=== PATIENT | female | born 1940 | race Caucasian/White ===

== ENCOUNTER 2021-11-27 10:29 | Emergency (ER) | payer MEDICARE, SELFPAY ==
--- NOTE | ~2021-11-27 | XR_ITS ---
XR ankle RT min 3V DATE: 11/27/2021 11:17 INDICATION: Slipped on steps on 11/26/2021. Medial ankle and foot pain since then. TECHNIQUE: 4 views COMPARISON: None FINDINGS: Osteopenia. No fracture or dislocation of the ankle or disruption of the ankle mortise. No periosteal reaction or bone destruction. IMPRESSION: Osteopenia Reviewed, dictated and finalized at location A. IMPRESSION: Osteopenia
--- NOTE | ~2021-11-27 | XR_ITS ---
XR foot RT min 3V DATE: 11/27/2021 11:16 INDICATION: Slipped on steps on 11/26/2021. Medial ankle and foot pain since. TECHNIQUE: 4 views COMPARISON: None FINDINGS: Osteopenia. There is mild osteoarthritis at the first metatarsophalangeal joint. No fracture or dislocation, periosteal reaction or bone destruction. IMPRESSION: Osteopenia Mild first metatarsophalangeal osteoarthritis Reviewed, dictated and finalized at location A.
[2021-11-27 10:40] VITALS: BP 142/82; PULSE 75; RESP 20; TEMP 37.2; O2SAT 100
--- NOTE | 2021-11-27 10:50 | ED.LOWEXIN ---
HPI - Extremity Injury (Lower) General Chief Complaint: Extremity Injury, Lower Stated Complaint: Fall Injury/Right Foot/Ankle Injury Time Seen by Provider: 11/27/21 10:51 Source: patient Mode of arrival: ambulatory Limitations: no limitations History of Present Illness HPI Narrative: 81-year-old female presented for complaint of pain to the right inner foot and ankle since last night after injury. She states she missed the last 2 steps when she slipped walking down the stairs. She states she landed on both of her hands but denies any hand or wrist pain. She rates pain 8 out of 10 with walking. Has not taken anything for pain. She denies numbness, tingling, weakness. Reports hx rheumatoid arthritis. Denies hx osteoporosis. Related Data Home Medications Medication Instructions Recorded Confirmed conjugated estrogens 0.625 mg/gram 0.625 mg vaginal DAILY 06/23/19 11/27/21 vaginal cream (Premarin) fluticasone furoate 100 1 inh inhalation DAILY 06/23/19 11/27/21 mcg-vilanterol 25 mcg/dose inhalation powder (Breo Ellipta) losartan 100 mg tablet 100 mg PO DAILY 06/23/19 11/27/21 methotrexate sodium 2.5 mg tablet 2.5 mg PO WEEKLY 06/23/19 11/27/21 montelukast 10 mg tablet 10 mg PO DAILY 06/23/19 11/27/21 omeprazole 40 mg capsule,delayed 40 mg PO DAILY 06/23/19 11/27/21 release simvastatin 40 mg tablet 40 mg PO DAILY 06/23/19 11/27/21 Allergies Allergy/AdvReac Type Severity Reaction Status Date / Time amoxicillin AdvReac Unknown Nausea and Verified 11/27/21 10:35 Vomiting clavulanic acid AdvReac Unknown Nausea and Verified 11/27/21 10:35 Vomiting Review of Systems Review of Systems: CONSTITUTIONAL: Denies body aches, fever, chills CARDIOVASCULAR: Denies chest pain, palpitations, or edema. RESPIRATORY: Denies cough or dyspnea. SKIN: Denies rash, itching, or wounds. MUSCULOSKELETAL: Reports joint pain and right foot pain NEUROLOGIC: Denies headache, numbness, tingling, or weakness. PSYCH: Denies depression or anxiety. All systems reviewed & are unremarkable except as noted in HPI and below PMFSH Comments At time of signature, I have reviewed and agree with nursing past medical, surgical, social and family history unless otherwise noted. Please see nursing chart for further information. There is no relevant family history pertinent to the presenting complaint Exam Narrative: GENERAL: Well-appearing CHEST: Speaks in full sentences. No respiratory distress. HEART: Regular rate and rhythm. Normal and equal peripheral pulses. EXTREMITIES: Right foot limited range of motion with plantar flexion. Pain with palpation to plantar surface of 1st-2nd metatarsals. No edema or ecchymosis. Right foot has normal strength and sensation, No open wounds, skin tenting, or obvious deformity; pulse palpable and equal bilaterally, skin warm, dry, pink. Capillary refill less than 3 seconds. SKIN: Warm, dry, no rash. NEURO: Alert and oriented x3. PSYCH: Normal mood and affect Course Course Emergency Course: Patient is aware of diagnosis, understands and agrees to treatment plan. Anticipatory guidance given. Patient agrees to follow-up as directed and is aware of reasons to seek care at the emergency department. Portions of this record may have been created with voice recognition software Level of Care: Express Care Visit Vital Signs Vital signs: Vital Signs Temperature 99.0 F 11/27/21 10:40 Pulse Rate 75 11/27/21 10:40 Respiratory Rate 20 11/27/21 10:40 Blood Pressure 142/82 H 11/27/21 10:40 Pulse Oximetry 100 11/27/21 10:40 Oxygen Delivery Room Air 11/27/21 10:40 Temperature 99.0 F 11/27/21 10:40 Pulse Rate 75 11/27/21 10:40 Respiratory Rate 20 11/27/21 10:40 Blood Pressure 142/82 H 11/27/21 10:40 Pulse Oximetry 100 11/27/21 10:40 Oxygen Delivery Room Air 11/27/21 10:40 Reviewed MDM - Extremity Injury (Lower) MDM Narrative Medical decision making narrativ
== END 2021-11-27 11:40 | disposition home or self-care (01) ==
PROVIDERS: Emergency Provider Nurse Practitioner Family; PCP Internal Medicine
DX: S96.911A Strain of unspecified muscle and tendon at ankle and foot level, right foot, initial encounter (principal); W10.9XXA Fall (on) (from) unspecified stairs and steps, initial encounter; I10 Essential (primary) hypertension; Z95.5 Presence of coronary angioplasty implant and graft; Z86.711 Personal history of pulmonary embolism; K21.9 Gastro-esophageal reflux disease without esophagitis; M06.9 Rheumatoid arthritis, unspecified; Z96.641 Presence of right artificial hip joint; Z85.3 Personal history of malignant neoplasm of breast; Z98.42 Cataract extraction status, left eye
CPT/HCPCS: 73610; 73630; 99213; G0463

== ENCOUNTER 2024-11-14 10:01 | Emergency (ER) | payer MEDICARE, SELFPAY ==
--- NOTE | ~2024-11-14 | XR_ITS ---
XR chest 2V Ordering provider: LISANDRO Drake History: 84 years Female with . cough . Comparison: June 23, 2019 FINDINGS: MEDIASTINUM: The cardiac silhouette is not enlarged. LUNGS: No effusions or pneumothorax. Opacification in the left lung base suggestive of atelectasis versus pneumonia. Underlying emphysemat ous changes. OTHER: No free air under the diaphragm. Degenerative the spine. IMPRESSION: Left lower lobe atelectasis versus pneumonia. Reviewed, dictated and finalized at location A.
[2024-11-14 10:10] VITALS: BP 127/89; PULSE 60; RESP 20; TEMP 36.6; O2SAT 100
[2024-11-14 10:27] LABS: EDSTREPNEGPOS1 Negative (Negative)
--- NOTE | 2024-11-14 10:35 | ED_ITS ---
HPI - General Adult General Chief complaint: Upper Respiratory Infection Stated complaint: not feeling well Source: patient and family Mode of arrival: ambulatory Limitations: dementia History of Present Illness HPI narrative: Pt brought in by gregorio with reports of not feeling well. Gregorio called her two days ago and noted that she seemed to have problems with her respirations and seemed lethargic and confused. He states she lives independently in nursing home and has pre-dementia. On her way in today she experienced some nausea. Pt denies fever, cough, and sore throat however does not seem confident in her answers. Gregorio states he recently helped administer a throat spray after she told him she had a sore throat. She denies any urinary symptoms. Last bowel movement was this morning, solid in consistency. Related Data Home Medications ?Medication ?Instructions ?Recorded ?Confirmed ?Last Taken ?Type conjugated estrogens 0.625 mg/gram 0.625 mg vaginal DAILY 06/23/19 11/27/21 Unknown History vaginal cream (Premarin) fluticasone furoate 100 1 inh inhalation DAILY 06/23/19 11/27/21 Unknown History mcg-vilanterol 25 mcg/dose inhalation powder (Breo Ellipta) losartan 100 mg tablet 100 mg PO DAILY 06/23/19 11/27/21 Unknown History methotrexate sodium 2.5 mg tablet 2.5 mg PO WEEKLY 06/23/19 11/27/21 Unknown History montelukast 10 mg tablet 10 mg PO DAILY 06/23/19 11/27/21 Unknown History omeprazole 40 mg capsule,delayed 40 mg PO DAILY 06/23/19 11/27/21 Unknown History release simvastatin 40 mg tablet 40 mg PO DAILY 06/23/19 11/27/21 Unknown History donepezil 5 mg tablet mg 11/14/24 Unknown History folic acid 1 mg tablet 11/14/24 Unknown History Allergies Allergy/AdvReac Type Severity Reaction Status Date / Time amoxicillin AdvReac Unknown Nausea and Verified 11/14/24 10:16 Vomiting clavulanic acid AdvReac Unknown Nausea and Verified 11/14/24 10:16 Vomiting Review of Systems Review of Systems: CONSTITUTIONAL: Reports not feeling well. Grandlita reports she is lethargic. Denies fever, chills, or sweats. EYES: Denies visual changes, redness, or discharge. ENT: Denies rhinorrhea, congestion, sore throat, or otalgia. CARDIOVASCULAR: Denies chest pain, palpitations, or edema. RESPIRATORY: Denies cough or dyspnea. GASTROINTESTINAL: Denies abdominal pain, nausea, vomiting, or diarrhea. GENITOURINARY: Denies dysuria or hematuria. SKIN: Denies rash or itching. MUSCULOSKELETAL: Denies back pain, joint pain, or myalgia. NEUROLOGIC: Denies headache, numbness, dizziness, or weakness. PSYCHIATRIC: Denies anxiety or depression. [facility] Past Medical History Medical History (Updated 11/14/24 @ 12:19 by LISANDRO Drake, ) GERD (gastroesophageal reflux disease) Hyperlipidemia Hypertension Surgical History Surgical History Surgical history unknown Family History Family History Mother Family history unknown Social History Social History Living arrangements: alone Gender identity (if verbalized by the patient): Female Spiritual care concerns: No Exam Narrative: GENERAL: Well-appearing, well-nourished, and in no acute distress. HEAD: Normocephalic, atraumatic. EYES: PERRLA and EOMI. ENT: Nares clear, no rhinorrhea or epistaxis. Mucous membranes moist. Oropharynx without tonsillar hypertrophy exudate or other lesions. Bilateral TMs pearly beth nonbulging NECK: Supple. No adenopathy or masses. No carotid bruits or JVD CHEST: Clear to auscultation. No respiratory distress. No wheezes rales or rhonchi HEART: Regular rate and rhythm. No murmur heard. Normal peripheral pulses. ABDOMEN: Soft, nontender, nondistended, normal active bowel sounds. EXTREMITIES: Normal range of motion. No edema. SKIN: Warm, dry, no rash. NEURO: No focal deficits. Alert and oriented to person and place. Confused about time PSYCH: Normal mood and affect. Course Course Emergency Course: This is an 84-year-old female who presented for evaluation of generally not feeling well. Strep and COVID were negative. Urine dipstick without evidence of infection. Chest x-ray was concerning for pneumonia. We ambulated patient in the hallway in her heart rate increased into the 130s. EKG was performed with a rate of [address] and T wave abnormalities present. Pt lives alone and has baseline confusion which is presently worse. I recommended pt be transferred to the ER for further evaluation. Pt and grandson in agreement with plan. [facility] is their facility of choice. I contacted the emergency department at [facility] and spoke with RN, Lissa. She indicated that Dr Dutton would accept the patient for transfer there. Pt transferred via private vehicle. Level of Care: Express Care Visit Vital Signs Vital signs: Vital Signs Temperature 36.6 C 11/14/24 10:10 Pulse Rate 60 11/14/24 10:10 Respiratory Rate 20 11/14/24 10:10 Blood Pressure 127/89 11/14/24 10:10 Pulse Oximetry 100 11/14/24 10:10 Oxygen Delivery Room Air 11/14/24 10:10 Temperature 36.6 C 11/14/24 10:10 Pulse Rate 130 H 11/14/24 11:55 Respiratory Rate 11/14/24 10:10 Blood Pressure 127/89 11/14/24 10:10 Pulse Oximetry 11/14/24 11:55 Oxygen Delivery Room Air 11/14/24 10:10 Medical Decision Making Vital Signs Vital Signs: Vital Signs Temperature 36.6 C 11/14/24 10:10 Pulse Rate 60 11/14/24 10:10 Respiratory Rate 20 11/14/24 10:10 Blood Pressure 127/89 11/14/24 10:10 Pulse Oximetry 100 11/14/24 10:10 Oxygen Delivery Room Air 11/14/24 10:10 Temperature 36.6 C 11/14/24 10:10 Pulse Rate 130 H 11/14/24 11:55 Respiratory Rate 11/14/24 10:10 Blood Pressure 127/89 11/14/24 10:10 Pulse Oximetry 100 11/14/24 11:55 Oxygen Delivery Room Air 11/14/24 10:10 Lab Data Labs: Lab Results 11/14/24 11/14/24 Range/Units 10:16 11:14 POC Urine Color Yellow POC Urine Clarity Clear POC Urine pH 5.5 POC Ur Specif Spade 1.030 POC Urine Protein 2+ (Negative) POC Ur Glucose (UA) Negative (Negative) POC Urine Ketones Negative (Negative) POC Urine Blood 1+ (Negative) POC Urine Nitrite Negative (Negative) POC Urine Bilirubin 1+ (Negative) POC Urine Urobilinogen 0.2 POC U Leukocyte Esteras Negative (Negative) POC SARS CoV-2 Ag Negative (Negative) POC Grp A Strep Screen Negative (Negative) Imaging Data Radiologist's impression: XR chest 2V Ordering provider: LISANDRO Drake History: 84 years Female with . cough . Comparison: June 23, 2019 FINDINGS: MEDIASTINUM: The cardiac silhouette is not enlarged. LUNGS: No effusions or pneumothorax. Opacification in the left lung base suggestive of atelectasis versus pneumonia. Underlying emphysematous changes. OTHER: No free air under the diaphragm. Degenerative the spine. IMPRESSION: Left lower lobe atelectasis versus pneumonia. ECG Data EKG #1: ECG completion date: 11/14/24 ECG completion time: 12:06 Interpretation: Sinus rhythm, rate 89, left atrial enlargement, ST and T-wave changes Discharge Plan Discharge Clinical Impression: Pneumonia, Tachycardia Patient Disposition: Acute Care Hospital Condition: Stable Patient Language: [place] Citizen Prescriptions: No Action omeprazole 40 mg Capsule,Delayed Release(Dr/Ec) 40 mg PO DAILY simvastatin 40 mg Tablet 40 mg PO DAILY methotrexate sodium 2.5 mg Tablet 2.5 mg PO WEEKLY Premarin 0.625 mg/gram Cream 0.625 mg VAGINAL DAILY montelukast 10 mg Tablet 10 mg PO DAILY losartan 100 mg Tablet 100 mg PO DAILY fluticasone furoate-vilanterol [Breo Ellipta] 100-25 mcg/dose Blister With De vice 1 inh INHALATION DAILY cetirizine-pseudoephedrine [Zyrtec-D] 5-120 mg tablet extended release 12 hr 1 tablet PO Q12H PRN (Reason: nasal congestion) Qty: 12 0RF ipratropium bromide 0.03 % spray,non-aerosol 2 spray NASAL TID PRN (Reason: nasal drainage) Qty: 30 0RF Rx Instructions: administer into each nostril donepezil 5 mg tablet folic acid 1 mg tablet Follow-up/Referrals: Nancy,Eddy Edmonds MD [Primary Care Provider] - Time of Disposition: 12:19
--- OUTSIDE RECORDS SUMMARY | 2024-11-14 10:41 | XMS_ITS | Encounter Summary ---
Author Organization [facility] Address [address] [place] [address] Phone Care Team Providers Care Dental Hygiene Professor Name Role Phone Eddy Cruz MD Primary Care Provider [phone] Loreto Espinosa APRN, [facility] Unavailable [phone] Allen Easton MD Unavailable [phone] Reason for Visit * Reason Comments Medication Refill Encounter Details Date Type Department Care Team (Late st Contact Info) Description 12/29/2023 Refill [facility] - Family Medicine [facility] [address] [place] [address] Eddy Cruz MD [address] [address] Medication Refill Social History Tobacco Use Types Packs/Day Years Used Date Smoking Tobacco: Never Smokeless Tobacco: Never Alcohol Use Standard Drinks/Week Comments Yes 2 (1 standard drink = 0.6 oz pur e alcohol) 2 glasses of wine a week [facility] Utilities Answer Date Recorded In the past 12 months has [employer], gas, oil, or water company threatened to shut off services in your home? Patient declined 12/11/2023 Social Connection and Isolation Panel Answer Date Recorded In a typical week, how many times do you talk on the phone with family, friends, or neighbors? Patient declined 12/11/2023 How often do you get togethe r with friends or relatives? Patient declined 12/11/2023 Attends [employer] Services Not on file 12/10 Active Member of Clubs or Organizations Not on f ile 12/11/2023 Attends Club or Organization Meetings Not on yoana e 12/11/2023 Marital Status Not on file 12/11/2023 AUDIT-C Answer Date Recorded Q1: How often do you have a drink containing alc ohol? Patient declined 12/11/2023 Q2: How many drinks containi ng alcohol do you have on a typical day when you are drinking? Patient declined 12/11/2023 Q3: How often do you have si x or more drinks on one occasion? Patient declined 12/11/2023 Overall Financial Resource Strain (CARDIA) Answe r Date Recorded How hard is it for you to pa y for the very basics like food, housing, medical care, and heating? Patient declined 12/11/2023 PHQ-2 Answer Date Recorded Total Score - Questions 1-9 0 07/28 [facility] Occupat ional [facility] - Occupational Stress Questionnaire Answer Date Recorded Do you feel stress - tense, restless, nervous, or anxious, or unable to sleep at night because your mind is troubled all the time - these days? Patient declined 12/11/2023 Exercise Vital Sign Answer Date Recorde d On average, how many days pe r week do you engage in moderate to strenuous exercise (like a brisk walk)? 0 days On average, how many minutes do you engage in exercise at this level? Patient declined 12/11/2023 Hunger Vital Sign Answer Date Recorded Within the past 12 months, y ou worried that your food would run out before you got the money to buy more. Patient declined Within the past 12 months, t he food you bought just didn't last and you didn't have money to get more. Patient declined PRAPARE - Transportation Answer Date Re corded In the past 12 months, has l ack of transportation kept you from medical appointments or from getting medications? Patient declined 12/11/2023 In the past 12 months, has l ack of transportation kept you from meetings, work, or from getting things needed for daily living? Patient declined 12/11/2023 Housing Stability Vital Sign Answer Phan e Recorded In the last 12 months, was t here a time when you were not able to pay the mortgage or rent on time? Patient declined 12/11/19 24 Number of Times Moved in the Last Year Not on fi le 12/11/2023 At any time in the past 12 m [facility], were you homeless or living in a fci (including now)? Patient declined 12/11/2023 Education Answer Date Recorded What is the highest level of school you have completed or the highest degree you have received? 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 Requested too soon: Montelukast Sodium Dispensed Days Supply Quantity Provider Pharmacy MONTELUKAST SODIUM 10 MG TABS 11/04/2023 90 90 Tablet Eddy Cruz MD [facility] [employer] Simvastatin Dispensed Days Supply Quantity Provider Pharmacy SIMVASTATIN 40 MG TABS 11/04/2023 90 90 Tablet Eddy Cruz MD [facility] [id number] documented in this encounter Plan of Treatment Upcoming Encounters Date Type Department Care Team (Late st Contact Info) Description 04/18/2025 8:30 AM ENVIRONMENTAL HEALTH MANAGER Office Visit [facility] - [facility] - [place] [address] [place] [address] Eddy Cruz MD [address] [address] documented as of this encounter Visit Diagnoses Not on filedocumented in this encounter Additional Health Concerns Assessment Noted Time PHQ-9 Depression Total Score: 0 06/26/19 21 8:55 AM ENVIRONMENTAL HEALTH MANAGER documented as of this encounter Care Teams Dental Hygiene Professor Relationship Specialty Start Date End Date Eddy Cruz MD [address] [address] PCP - General Family Medicine 06/10/15 Loreto Espinosa, INPATIENT CODER, ALARM MECHANISM ADJUSTER [address] [address] Nurse Practitioner Advanced Practice Nurse 05/05/16 Allen Easton MD [address] [place] [id number] Consulting Physician Neurology 09/27/21 documented as of this encounter
--- OUTSIDE RECORDS SUMMARY | 2024-11-14 10:41 | XMS_ITS | Encounter Summary ---
Author Organization [facility] Address [address] [place] [address] Phone Care Team Providers Care Entry Level Administrative Assistant Name Role Phone Eddy Cruz MD Primary Care Provider [phone] Loreto Espinosa APRN, [facility] Unavailable Allen Easton MD Unavailable Reason for Visit * Reason Comments Medication Refill Encounter Details Date Type Department Care Team (Late st Contact Info) Description 06/08/2023 Refill [facility] - Family Medicine [facility] [address] [place] [address] Eddy Cruz MD [address] [address] Medication Refill Social History Tobacco Use Types Packs/Day Years Used Date Smoking Tobacco: Never Smokeless Tobacco: Never Alcohol Use Standard Drinks/Week Comments Yes 2 (1 standard drink = 0.6 oz pur e alcohol) 2 glasses of wine a week PHQ-2 Answer Date Recorded Total Score - Questions 1-9 0 07/28 Education Answer Date Recorded What is the [...] 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 Requested Prescriptions Pending Prescriptions Disp Refills omeprazole (PriLOSEC) 40 MG CAPSULE DELAYED RELEASE [Pharmacy Med Name: Omeprazole 40 MG Oral Capsule Delayed Release] 100 Capsule 2 Sig: TAKE 1 CAPSULE BY MOUTH DAILY Proton Pump Inhibitors Protocol Passed - 06/08/2023 10:04 PM Passed - Visit with relevant provider in past 12 months or upcoming 90 days Recent Visits Date Type Provider Dept 04/05/23 Office Visit Eddy Cruz MD [facility] 11/03/22 Office Visit Eddy Cruz MD [facility] 10/03/22 Office Visit Eddy Cruz MD [facility] Showing recent visits within past 365 days and meeting all other requirements Future Appointments Date Type Provider Dept 07/31/23 Appointment [facility] Showing future appointments within next 90 days and meeting all other requirements IN DISKER documented in this encounter Plan of Treatment Upcoming Encounters Date Type Department Care Team (Late st Contact Info) Description 04/18/2025 8:30 AM BOBBIN DISKER Office Visit [facility] Medical Group - Family Medicine - [place] [address] [place] [address] Eddy Cruz MD [address] [address] documented as of this encounter Visit Diagnoses Not on filedocumented in this encounter Additional Health Concerns Assessment Noted Time PHQ-9 Depression Total Score: 0 06/26/19 8:55 AM BOBBIN DISKER documented as of this encounter Care Teams Entry Level Administrative Assistant Relationship Specialty Start Date End Date Eddy Cruz MD [address] [address] PCP - General Family Medicine 06/10/15 Loreto Espinosa APRN, [employer] #[address] [address] Nurse Practitioner Advanced Practice Nurse 05/05/16 Allen Easton MD [address] [place] [phone] Consulting Physician Neurology 09/27/21 documented as of this encounter
--- OUTSIDE RECORDS SUMMARY | 2024-11-14 10:41 | XMS_ITS | Encounter Summary ---
Author Organization [facility] Address [address] [place] [address] Phone Care Team Providers Care Micrographics Services Supervisor Name Role Phone Eddy Cruz MD Primary Care Provider Loreto Espinosa APRN, ENVIRONMENTAL SAMPLING TECHNICIAN Unavailable Allen Easton MD Unavailable [phone] Encounter Details Date Type Department Care Team (Late st Contact Info) Description 02/17/2021 Transcribe Orders [facility] Central Scheduling [address] [place] [address] Awa Kincaid MD [address] [place] [address] [facility] [place] [address] Peripheral vascular disease, unspecified (HCC) (Primary Dx) Social History Tobacco Use Types Packs/Day Years Used Date Smoking Tobacco: Never Smokeless Tobacco: Never Alcohol Use Standard Drinks/Week Comments Yes 2 (1 standard drink = 0.6 oz pur e alcohol) 2 glasses of wine a week PHQ-2 Answer Date Recorded Total Score - Questions 1-9 0 05/30 Sexually Active Control Partners Comments Not Currently Comments No Sex and Gender Information Value Date Recorded Sex Assigned at Not on file Legal Sex Female 8:44 PM CDT Gender Identity Not on file Sexual Orientation Not on file 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 Not on file Not on yoana e documented as of this encounter Plan of Treatment Upcoming Encounters Date Type Department Care Team (Late st Contact Info) Description 04/18/2025 8:30 AM WOVEN LABEL DESIGNER [facility] [address] [place] [address] Eddy Cruz MD #2 [facility] [place] [place] [address] documented as of this encounter Visit Diagnoses Diagnosis Peripheral vascular disease, unspecified (HCC)- Primary Peripheral vascular disease, unspecified documented in this encounter Additional Health Concerns Assessment Noted Time PHQ-9 Depression Total Score: 0 06/26/19 8:55 AM WOVEN LABEL DESIGNER documented as of this encounter Care Teams Micrographics Services Supervisor Relationship Specialty Start Date End Date Eddy Cruz MD #[address] [address] PCP - General Family Medicine 06/10/15 Loreto Espinosa, REFINERY OPERATOR [employer], ENVIRONMENTAL SAMPLING TECHNICIAN #[address] [address] Nurse Practitioner Advanced Practice Nurse 05/05/16 Allen Easton MD [address]2 [place] [address] Consulting Physician Neurology 09/27/21 documented as of this encounter
--- OUTSIDE RECORDS SUMMARY | 2024-11-14 10:41 | XMS_ITS | Encounter Summary ---
Author Organization [facility] Address [address] [place] [address] Phone Care Team Providers Care Home Service Advisor Name Role Phone Eddy Cruz MD Primary Care Provider [phone] Loreto Espinosa APRN, [facility] Unavailable [phone] Allen Easton MD Unavailable Reason for Visit * Reason Comments Medication Refill Encounter Details Date Type Department Care Team (Late st Contact Info) Description 09/29/2022 Refill [facility] - Family Medicine [facility]2 [place] [address] Eddy Cruz MD #[address] [address] Medication Refill Social History Tobacco Use Types Packs/Day Years Used Date Smoking Tobacco: Never Smokeless Tobacco: Never Alcohol Use Standard Drinks/Week Comments Yes 2 (1 standard drink = 0.6 oz pur e alcohol) 2 glasses of wine a week PHQ-2 Answer Date Recorded Total Score - Questions 1-9 0 07/28 Sexually Active Control Partners Comments Not Currently Comments No Sex and Gender Information Value Date Recorded Sex Assigned at Not on file Legal Sex Female 8:44 PM CDT Gender Identity Not on file Sexual Orientation Not on file 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 No / Unsure 09/29/2022 8:44 AM CDT documented as of this encounter Miscellaneous Notes * Telephone Encounter - Savannah Sparrow RN - 09/30/2022 8:22 AM CDT Medication warning Per nursing clinical judgement, provider to review and approve the medication(s) order(s) if appropriate. Requested Prescriptions Pending Prescriptions Disp Refills omeprazole (PriLOSEC) 40 MG CAPSULE DELAYED RELEASE [Pharmacy Med Name: Omeprazole 40 MG Oral Capsule Delayed Release] 100 Capsule 2 Sig: TAKE 1 CAPSULE BY MOUTH DAILY Proton Pump Inhibitors Protocol Passed - 09/29/2022 10:20 PM Passed - Visit with relevant provider in past 12 months or upcoming 90 days Recent Visits Date Type Provider Dept 04/29/22 Office Visit Eddy Cruz MD [facility] 10/29/21 Office Visit Eddy Cruz MD [facility] [place] [facility] Showing recent visits within past 365 days and meeting all other requirements Future Appointments Date Type Provider Dept 10/03/22 Appointment Eddy Cruz MD [facility] 10/28/22 Appointment Eddy Cruz MD [facility] Showing future appointments within next 90 days and meeting all other requirements documented in this encounter Plan of Treatment Upcoming Encounters Date Type Department Care Team (Late st Contact Info) Description 04/18/2025 8:30 AM CENTERPUNCHER Office Visit [facility] - Family Medicine - Mag [address] [place] [address] Eddy Cruz MD [address] [address] documented as of this encounter Visit Diagnoses Not on filedocumented in this encounter Additional Health Concerns Assessment Noted Time PHQ-9 Depression Total Score: 0 06/26/19 8:55 AM CENTERPUNCHER documented as of this encounter Care Teams Home Service Advisor Relationship Specialty Start Date End Date Eddy Cruz MD #[address] [address] PCP - General Family Medicine 06/10/15 Loreto Espinosa APRN, PRODUCE RUNNER #[address] [address] Nurse Practitioner Advanced Practice Nurse 05/05/16 Allen Easton MD [address]2 [place] [address] Consulting Physician Neurology 09/27/21 documented as of this encounter
--- OUTSIDE RECORDS SUMMARY | 2024-11-14 10:41 | XMS_ITS | Encounter Summary ---
Author Organization [facility] Address [address] [place] [address] Phone Care Team Providers Care Physical Therapist Technician Name Role Phone Eddy Cruz MD Primary Care Provider [phone] Loreto Espinosa APRN, [facility] Unavailable Allen Easton MD Unavailable [phone] Reason for Visit * Reason Comments Medication Refill Encounter Details Date Type Department Care Team (Late st Contact Info) Description 08/03/2020 Refill [facility] - Family Medicine [facility] [address]2 [place] [address] Eddy Cruz MD #[address] [address] Medication Refill Social History Tobacco Use Types [...] Job 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 No / Unsure 07/30/2020 6:14 PM ANIMAL SURGEON documented as of this encounter Miscellaneous Notes * Telephone Encounter - Eddy Cruz MD - 08/04/2020 9:58 AM CST Prescription approved. Please call in AL SURGEON * Telephone Encounter - Savannah Sparrow RN - 08/04/2020 9:50 AM CST Please address medication warning Per nursing clinical judgement, provider to review and approve the medication(s) order(s) if appropriate. Requested Prescriptions Pending Prescriptions Disp Refills montelukast (SINGULAIR) 10 MG Tablet [Pharmacy Med Name: MONTELUKAST 10MG TABLET] 90 Tablet 3 Sig: TAKE 1 TABLET BY MOUTH DAILY Pulmonology: Leukotriene Inhibitors Passed - 08/03/2020 10:51 AM Passed - Valid encounter within last 12 months Past Office Visits Recent Outpatient Visits 1 month ago Essential hypertension [facility] - Eddy Riggs MD 7 months ago Essential hypertension [facility] Eddy Riggs MD 1 year ago Essential hypertension [facility] Asuncion Morales PAC 1 year [facility] bacterial [facility] APN, FERRYBOAT HELPER Upcoming Appointments Future Appointments In [address] [facility] Recent and Past Visits Recent Visits Date Type Provider Dept 06/26/20 Office Visit Eddy Cruz MD [facility] 12/24/19 Office Visit [facility] MD [facility] Showing recent visits within past 460 days with a meds authorizing provider and meeting all other requirements Future Appointments No visits were found meeting these conditions. Showing future appointments within next 90 days with a meds authorizing provider and meeting all other requirements AL SURGEON documented in this encounter Plan of Treatment Upcoming Encounters Date Type Department Care Team (Late st Contact Info) Description 04/18/2025 8:30 AM ANIMAL SURGEON [facility] Visit [facility] [address]2 [place] [address] Eddy Cruz MD #[address] [address] documented as of this encounter Visit Diagnoses Not on filedocumented in this encounter Additional Health Concerns Assessment Noted Time PHQ-9 Depression Total Score: 0 06/26/19 21 8:55 AM ANIMAL SURGEON documented as of this encounter Care Teams Physical Therapist Technician Relationship Specialty Start Date End Date Eddy Cruz MD #[address] [address] PCP - General Family Medicine 06/10/15 Loreto Espinosa APRN, FERRYBOAT HELPER #[address] [address] Nurse Practitioner Advanced Practice Nurse 05/05/16 Allen Easton MD #2 [place] [address] Consulting Physician Neurology 09/27/21 documented as of this encounter
--- OUTSIDE RECORDS SUMMARY | 2024-11-14 10:41 | XMS_ITS | Encounter Summary ---
Author Organization [facility] Address [address] [place] [address] Phone Care Team Providers Care Automatic Furnace Operator Name Role Phone Eddy Cruz MD Primary Care Provider [phone] Loreto Espinosa APRN, [facility] Unavailable [phone] Allen Easton MD Unavailable Reason for Visit * Reason Comments Medication Refill Encounter Details Date Type Department Care Team (Late st Contact Info) Description 08/10/2023 Refill [facility] - [facility]2 [place] [address] Eddy Cruz MD #[address] [address] Medication Refill Social History Tobacco Use Types [...] 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 Requested Prescriptions Pending Prescriptions Disp Refills losartan (COZAAR) 100 MG Tablet [Pharmacy Med Name: Losartan Potassium 100 MG Oral Tablet] 100 Tablet 2 Sig: TAKE 1 TABLET BY MOUTH DAILY ARB Protocol Passed - 08/10/2023 9:24 PM Passed - Serum potassium on record in past 12 months POTASSIUM Date Value Ref Range Status 07/31/2023 4.3 3.5 - 5.1 mmol/L Final Passed - BP on record in the past year Clinician-entered: BP Readings from Last 3 Encounters: 07/31/23 132/82 04/05/23 132/65 12/26/22 143/74 Patient-entered: No data recorded Passed - Visit with relevant provider in past year or upcoming 90 days Recent Visits Date Type Provider Dept 07/31/23 [facility]23 [facility] 11/03/22 Office [facility] 10/03/22 Office Visit Eddy Cruz MD [facility] Showing recent visits within past 365 days and meeting all other requirements Future Appointments No visits were found meeting these conditions. Showing future appointments within next 90 days and meeting all other requirements Passed - GFR on record in past 12 months GFR, EST. NONAFRICAN Date Value Ref Range Status 07/31/2023 >60 >=60 Final documented in this encounter Plan of Treatment Upcoming Encounters Date Type Department Care Team (Late st Contact Info) Description 04/18/2025 8:30 AM EXERCISE SCIENTIST [facility] Visit [facility] - [facility] [address] [place] [address] Eddy Cruz MD #[address] [address] documented as of this encounter Visit Diagnoses Not on filedocumented in this encounter Additional Health Concerns Assessment Noted Time PHQ-9 Depression Total Score: 0 06/26/19 21 8:55 AM EXERCISE SCIENTIST documented as of this encounter Care Teams Automatic Furnace Operator Relationship Specialty Start Date End Date Eddy Cruz MD #[address] [address] PCP - General Family Medicine 06/10/15 Loreto Espinosa APRN, [employer]CH[employer] #[address] [address] Nurse Practitioner Advanced Practice Nurse 05/05/16 Allen Easton MD [address]2 [place] [address] Consulting Physician Neurology 09/27/21 documented as of this encounter
--- OUTSIDE RECORDS SUMMARY | 2024-11-14 10:41 | XMS_ITS | Encounter Summary ---
Author Organization [facility] Address [address] [place] [address] Phone Care Team Providers Care Sleeping Room Cleaner Name Role Phone Eddy Cruz MD Primary Care Provider [phone] Loreto Espinosa APRN, [facility] Unavailable Allen Easton MD Unavailable Reason for Visit * Reason Comments Medication Refill Encounter Details Date Type Department Care Team (Late st Contact Info) Description 11/13/2024 Refill [facility] - Family Medicine [facility] #2 [place] [address] Eddy Cruz MD #[address] [address] Medication Refill Social History Tobacco Use Types Packs/Day Years Used Date Smoking Tobacco: Never Smokeless Tobacco: Never Alcohol Use Standard Drinks/Week Comments Yes 2 (1 standard drink = 0.6 oz pur e alcohol) 2 glasses of wine a week [facility] Utilities Answer Date Recorded In the past 12 months has [employer], gas, oil, or water company threatened to shut off services in your home? Patient declined 03/21/2024 Social Connection and Isolation Panel Answer Date Recorded In a typical week, how many times do you talk on the phone with family, friends, or neighbors? Patient declined 03/21/2024 How often do you get togethe r with friends or relatives? Patient declined 03/21/2024 How often do you attend denominational or spiritism serv ices? Patient declined 03/21/2024 Do you belong to any clubs o r organizations such as denominational groups, unions, fraternal or athletic groups, or school groups? Patient declined 03/21/2024 How often do you attend meet ings of the clubs or organizations you belong to? Patient declined 03/21/2024 Are you , , di vorced, , never , or living with a partner? Patient declined 03/21/2024 AUDIT-C Answer Date Recorded Q1: How often do you have a drink containing alc ohol? Patient declined 03/21/2024 Q2: How many drinks containi ng alcohol do you have on a typical day when you are drinking? Patient declined 03/21/2024 Q3: How often do you have si x or more drinks on one occasion? Patient declined 03/21/2024 Overall Financial Resource Strain (CARDIA) Answe r Date Recorded How hard is it for you to pa y for the very basics like food, housing, medical care, and heating? Patient declined 03/21/2024 PHQ-2 Answer Date Recorded Total Score - Questions 1-9 0 09/27 [facility] - Occupational Stress Questionnaire Answer Date Recorded Do you feel stress - tense, restless, nervous, or anxious, or unable to sleep at night because your mind is troubled all the time - these days? Patient declined 03/21/2024 Exercise Vital Sign Answer Date Recorde d On average, how many days pe r week do you engage in moderate to strenuous exercise (like a brisk walk)? Patient declined On average, how many minutes do you engage in exercise at this level? Patient declined 03/21/2024 Hunger Vital Sign Answer Date Recorded Within [...] appointments or from getting medications? Patient declined 03/21/2024 In the past 12 months, has l ack of transportation kept you from meetings, work, or from getting things needed for daily living? Patient declined 03/21/2024 Housing Stability Vital Sign Answer Phan e Recorded In the last 12 months, was t here a time when you were not able to pay the mortgage or rent on time? Patient declined 03/21/20 In the past 12 months, how m any times have you moved where you were living? 1 03/21/2024 At any time in the past 12 m [facility], were you homeless or living in a residential (including now)? 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 Requested Prescriptions Pending Prescriptions Disp Refills omeprazole (PriLOSEC) 40 MG CAPSULE DELAYED RELEASE [Pharmacy Med Name: Omeprazole 40 MG Oral Capsule Delayed Release] 90 Capsule 3 Sig: TAKE 1 CAPSULE BY MOUTH DAILY Proton Pump Inhibitors Protocol Passed - 11/14/2024 9:30 AM Passed - Visit with relevant provider in past 12 months or upcoming 90 days Recent Visits Date Type Provider Dept 10/16/24 Office Visit Eddy Cruz MD [facility] 04/19/24 Office Visit Eddy Cruz MD [facility] 03/21/24 Office Visit Eddy Cruz MD [facility] 12/11/23 Office Visit Eddy Cruz MD [facility] Showing recent visits within past 365 days and meeting all other requirements Future Appointments No visits were found meeting these conditions. Showing future appointments within next 90 days and meeting all other requirements documented in this encounter Plan of Treatment Upcoming Encounters Date Type Department Care Team (Late st Contact Info) Description 04/18/2025 8:30 AM BINDERY MACHINE OPERATOR [facility] [place] [address] Eddy Cruz MD [address] [address] documented as of this encounter Visit Diagnoses Not on filedocumented in this encounter Additional Health Concerns Assessment Noted Time PHQ-9 Depression Total Score: 0 10/17/19 25 9:16 AM CDT documented as of this encounter Care Teams Sleeping Room Cleaner Relationship Specialty Start Date End Date Eddy Cruz MD #[address] [address] PCP - General Family Medicine 06/10/15 Loreto Espinosa APRN, SPINE SURGEON #[address] [address] Nurse Practitioner Advanced Practice Nurse 05/05/16 Allen Easton MD #2 [place] [address] Consulting Physician Neurology 09/27/21 documented as of this encounter
--- OUTSIDE RECORDS SUMMARY | 2024-11-14 10:41 | XMS_ITS | Encounter Summary ---
Author Organization [facility] Address [address] [place] [address] Phone Care Team Providers Care Marine Plumber Name Role Phone Eddy Cruz MD Primary Care Provider [phone] Loreto Espinosa APRN, [facility] Unavailable [phone] Allen Easton MD Unavailable Reason for Visit * Reason Comments Medication Refill Encounter Details Date Type Department Care Team (Late st Contact Info) Description 11/17/2019 [facility]ill [facility] [address]2 [place] [address] Eddy Cruz MD [address] [address] Medication Refill Social History Tobacco Use Types Packs/Day Years Used Date Smoking Tobacco: Never Smokeless Tobacco: Never Alcohol Use Standard Drinks/Week Comments Yes 2 (1 standard drink = 0.6 oz pur e alcohol) 2 glasses of wine a week PHQ-2 Answer Date Recorded PHQ-2 Score 1 01/29/2019 Sexually Active Control Partners Comments Not Currently Comments No Sex and Gender Information Value Date Recorded Sex Assigned at Not on file Legal Sex Female 8:44 PM CDT Gender Identity Not on file Sexual Orientation Not on file 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 Yes, pended. * Telephone Encounter - Evy Arvizu RN - 11/21/2019 1:54 PM CDT Called patient. Scheduled patient on 12/23 at 12:30. Patient is asking if PCP will fill until then. Please advise. Is PCP wanting fasting labs done prior to appointment? Please advise. * Telephone Encounter - Rae Randhawa RN - 11/19/2019 1:42 PM CDT NITESH: 09-21-2018 Next OV: none documented in this encounter Plan of Treatment Upcoming Encounters Date Type Department Care Team (Late st Contact Info) Description 04/18/2025 8:30 AM SIGN MAINTENANCE Office Visit [facility] - Family Medicine [facility] [address]2 [place] [address] Eddy Cruz MD #[address] [address] documented as of this encounter Results * LIPID PANEL (12/24/2019 1:08 PM CDT) CHOLESTEROL 109 <=200 mg/dL 12/24/2019 3:25 PM CDT [facility] TRIGLYCERIDES 56 <150 mg/dL 12/24/2019 3:25 PM CDT [facility] HDL CHOLESTEROL 63.0 >40 mg/dL 0 3:25 PM CDT [facility] LDL 35 5 - 130 mg/dL 12/24/2019 3:25 PM CDT [facility] VLDL 11 5 - 55 mg/dL 12/24/2019 3:25 PM CDT [facility] CHOL/HDL RATIO 1.7 0.0 - 4.4 12/24/2019 3:25 PM CDT [facility] NON-HDL CHOLESTEROL 46 <130 mg/dL 12/24/2019 3:25 PM CDT [facility] LIPID FASTING 12/24/2019 3:25 PM CDT [facility] Blood Venipuncture / Unknown 12/24/2019 1:08 PM CDT 12/24/2019 1:08 PM CDT Eddy Cruz MD CHEMISTRY ORDERABLES Final Re sult [facility] #[address] [place] [address] * (ABNORMAL) CMP (COMPREHENSIVE METABOLIC PANEL) (12/24/2019 1:08 PM CDT) SODIUM 136 136 - 144 mmol/L 12/24/2019 3:25 PM CDT [facility] POTASSIUM 4.4 3.5 - 5.1 mmol/L 12/24/2019 3:25 PM CDT [facility] CHLORIDE 98(L) 100 - 110 mmol/L 12/24/2019 3:25 PM CDT [facility] CO2, VENOUS 26 22 - 32 mmol/L 12/24/2019 3:25 PM CDT [facility] ANION GAP 16.4 8.0 - 20.0 mmol/L 12/24/2019 3:25 PM CDT [facility] GLUCOSE 104(H) 70 - 99 mg/dL 12/24/2019 3:25 PM CDT [facility] BUN 11 8 - 23 mg/dL 12/24/2019 3:25 PM CDT [facility] CREATININE, BLOOD 0.70 0.60 - 1.10 mg/dL 12/24/2019 3:25 PM CDT [facility] BUN/CREATININE RATIO 16 12 - 20 ratio 12/24/2019 3:25 PM CDT [facility] TOTAL PROTEIN 7.3 6.0 - 8.3 g/dL 12/24/2019 3:25 PM CDT [facility] ALBUMIN 4.4 3.5 - 5.2 g/dL 12/24/2019 3:25 PM CDT [facility] Comment: The colormetric methods used for the determination of Albumin may lead to falsely elevated test results in patients suffering from renal failure or insufficiency due to interference with other proteins. A/G RATIO 1.5 1.0 - 2.0 12/24/2019 3:25 PM CDT [facility] CALCIUM 9.7 8.9 - 10.3 mg/dL 12/24/2019 3:25 PM CDT [facility] T BILI 0.3 <=1.2 mg/dL 12/24/2019 3:25 PM CDT [facility] SGOT (AST) 23 <=32 U/L 12/24/2019 3:25 PM CDT [facility] SGPT (ALT) 13 <=33 U/L 12/24/2019 3:25 PM CDT [facility] ALKALINE PHOSPHATASE 71 35 - 105 U/L 12/24/2019 3:25 PM CDT [facility] GFR, EST. NONAFRICAN >60 >=60 12/24/2019 3:25 PM CDT [facility] GFR, EST. >60 >=60 020 3:25 PM CDT [facility] Comment: Creatinine Clearance is the preferred criteria for selecting drug dose adjustments in renally impaired patients. The GFR is provided as additional pertinent clinical information. GFR is reported in mL/min/1.73 sq m. Blood Venipuncture / Unknown 12/24/2019 1:08 PM CDT 12/24/2019 1:08 PM CDT Eddy Cruz MD CHEMISTRY ORDERABLES Final Re sult Performing Organization Address City/State/[facility] Co de Phone Number [facility] [address] [place] [address] documented in this encounter Visit Diagnoses Diagnosis Essential hypertension- Primary Unspecified essential hypertension Coronary artery disease involving [place] coronary artery of [place] heart without angina pectoris Pure hypercholesterolemia documented in this encounter Additional Health Concerns Assessment Noted Time PHQ-9 Depression Total Score: 1 01/15/20 19 9:55 AM CDT documented as of this encounter Care Teams Marine Plumber Relationship Specialty Start Date End Date Eddy Cruz MD #[address] [address] PCP - General Family Medicine 06/10/15 Loreto Espinosa APRN, CNP #[address] [address] Nurse Practitioner Advanced Practice Nurse 05/05/16 Allen Easton MD [address]2 [place] [address] Consulting Physician Neurology 09/27/21 documented as of this encounter
--- OUTSIDE RECORDS SUMMARY | 2024-11-14 10:41 | XMS_ITS | Encounter Summary ---
Author Organization [facility] Address [address] [place] [address] Phone Care Team Providers Care Education Paraprofessional Name Role Phone Eddy Cruz MD Primary Care Provider [phone] Loreto Espinosa APRN, [facility] Unavailable [phone] Allen Easton MD Unavailable Reason for Visit * Reason Onset Date Comments Need Order 09/23/2024 Appointment 09/23/2024 Encounter Details Date Type Department Care Team (Late st Contact Info) Description 09/23/2024 Telephone [facility] Central Call Center [address] [place] [phone] Eddy Cruz MD #[address] [address] Need Order; Appointment Social History Tobacco Use Types Packs/Day Years Used Date Smoking Tobacco: Never Smokeless Tobacco: Never Alcohol Use Standard Drinks/Week Comments Yes 2 (1 standard drink = 0.6 oz pur e alcohol) 2 glasses of wine a week [facility] Utilities Answer Date Recorded In the past 12 months has e electric, gas, oil, or water company threatened to [...] declined 03/21/2024 How often do you attend cheondoism or roman catholic serv ices? Patient declined 03/21/2024 Do you belong to any clubs o r organizations such as cheondoism groups, unions, fraternal or athletic groups, or [...] Total Score - Questions 1-9 0 07/28 [facility] - Occupational Stress Questionnaire Answer Date Recorded [...] any time in the past 12 m [facility], were you homeless or living in a skilled nursing (including now)? 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 Tried to explain to him that patient will need to be seen first but he insisted on getting the fax number. Called patient and she DID NOT request an order for those or want these ordered. She said she does not have those problems. Please disregard any orders that may come to office. documented in this encounter Plan of Treatment Upcoming Encounters Date Type Department Care Team (Late st Contact Info) Description 04/18/2025 8:30 AM WINDOW SASH INSTALLER Office Visit [facility] - [place] [address] [place] [address] Eddy Cruz MD #[address] [address] documented as of this encounter Visit Diagnoses Not on filedocumented in this encounter Additional Health Concerns Assessment Noted Time PHQ-9 Depression Total Score: 0 06/26/19 21 8:55 AM WINDOW SASH INSTALLER documented as of this encounter Care Teams Education Paraprofessional Relationship Specialty Start Date End Date Eddy Cruz MD #[address] [address] PCP - General Family Medicine 06/10/15 Loreto Espinosa APRN, INSURANCE RISK SURVEYOR #[address] [address] Nurse Practitioner Advanced Practice Nurse 05/05/16 Allen Easton MD #2 [place] [address] Consulting Physician Neurology 09/27/21 documented as of this encounter
--- OUTSIDE RECORDS SUMMARY | 2024-11-14 10:41 | XMS_ITS | Clinical Summary ---
Author Organization [facility] Address [address], [address] [address] Phone Care Team Providers Care Institution Librarian Name Role Phone Eddy Cruz MD Primary Care Provider [phone] Loreto Espinosa APRN, DATA SECURITY CONSULTANT Unavailable [phone] Allen Easton MD Unavailable [phone] Allergies Active Allergy Reactions Criticality Noted Date Comments Amoxicillin-Pot Clavulanate Vomiting 09/16/19 16 Other Unknown Seasonal allergies Medications BREO ELLIPTA 100-25 MCG/INH AEROSOL POWDER, BREATH ACTIVATED take 1 Puff by inhalation 2 times daily. 09/01/19 16 Active PREMARIN 0.625 MG/GM Cream by Vaginal route twice a week. 05/26/20 15 Active fluticasone (FLONASE) 50 MCG/ACT Suspension 1 [place] by Nasal route 2 times daily. Reported on 09/14/2016 Active folic acid (FOLVITE) 1 MG Tablet Take 2 mg by mouth daily. Active Multiple Vitamin (MULTI-VITAMIN PO) Take by mouth. Activ e cycloSPORINE (RESTASIS) 0.05 % Emulsion 0.05 %. 08/05/19 09 Active Denosumab (PROLIA) 60 MG/ML Solution Prefilled Syringe 1 mL by Subcutaneous route See Admin Instructions. 1 mL 11/05/19 23 Active simvastatin (ZOCOR) 40 MG Tablet TAKE 1 TABLET BY MOUTH AT NIGHT 90 Tablet 3 02/20/20 23 Active montelukast (SINGULAIR) 10 MG Tablet 08/07/19 24 Active aspirin 325 MG Tablet Take 325 mg by mouth daily. Active losartan (COZAAR) 100 MG Tablet TAKE 1 TABLET BY MOUTH DAILY 90 Tablet 3 03/24/20 24 Active donepezil (ARICEPT) 5 MG Tablet Take 1 Tablet by mouth nightly. 90 Tablet 3 05/15/20 24 Active omeprazole (PriLOSEC) 40 MG CAPSULE DELAYED RELEASE TAKE 1 CAPSULE BY MOUTH DAILY 90 Capsule 3 11/15/19 25 Active omeprazole (PriLOSEC) 40 MG CAPSULE DELAYED RELEASE TAKE 1 CAPSULE BY MOUTH DAILY 90 Capsule 1 06/19/19 25 025 Discontinued Active Problems Problem Noted Date Diagnosed Date Left breast mass 01/01/2018 Abnormal mammogram of left breast 01/01/2018 Left foot pain 11/21/2017 Rheumatoid arthritis involvi ng multiple sites with positive rheumatoid factor 09/14/2017 Dysuria 09/14/2016 Pneumonia 07/26/2016 Oropharyngeal dysphagia 04/18/2016 Need for influenza vaccination 03/15/2016 Pure hypercholesterolemia 09/16/2015 Simple chronic bronchitis 09/16/2015 HTN (hypertension) Osteoporosis Dry eyes CAD (coronary artery disease) Encounters Date Type Department Care Team Description 11/13/2024 [facility]ill [facility] [address] [facility] [place] [address] Eddy Cruz MD Medication Refill 11/11/2024 Telephone [facility] [address] [facility] [place] [address] Eddy Cruz MD 10/16/2024 8:30 AM CDT Office Visit [facility] [address] [facility] [place] [address] Eddy Cruz MD Primary hypertension (Primary Dx); Coronary artery disease involving [place] coronary artery of [place] heart without angina pectoris; Age-related osteoporosis without current pathological fracture; Pure hypercholesterolemia; Memory impairment; Essential hypertension Discharge Disposition: Discharged to home or Selfcare 10/16/2024 Travel 10/09/2024 8:40 AM CDT Lab [facility] [address] [facility] [address] [place] [address] Lab, Mag Lab/Ancillary Primary hypertension; Age-related osteoporosis without current pathological fracture; Pure hypercholesterolemia Discharge Disposition: Discharged to home or Selfcare 10/09/2024 Travel 10/08/2024 Telephone [facility] Call Center [address] [place] [address] Eddy Cruz MD Labs Only 09/23/2024 Telephone [facility] [address] [place] [address] Eddy Cruz MD Need Order; Appointment from Last 3 Months Immunizations Immunization Administration Dates Next Due COVID-19, MRNA, LNP-S, BIVAL ENT , MODERNA, 50 MCG/0.5 ML (12+) 04/20/2022 COVID-19, MRNA, LNP-S, BIVAL ENT , PFIZER, 30 MCG/0.3 ML (12+ Y/O) 04/20/2022 Covid-19, Mrna, Lnp-s, PF, 1 00 mcg/0.5 mL Dose (Moderna) 07/30/2020,07/02/2020 Covid-19, Mrna, Lnp-s, Pf, 1 00 Mcg Or 50 Mcg Dose (MODERNA) 04/02/2021 Covid-19, Mrna, Lnp-s, Pf, 3 0 Mcg/0.3 Ml Dose (Pfizer) 09/10/2021 Covid-19, Mrna, Lnp-s, Pf, Tien-sucrose, 30 Mcg/0.3 Ml (Pfizer) 03/01/2024,03/23/2023 Influenza Vaccine greater than 3 yrs ,03/23/2018,03/08/2017,2015,03/02/2015,02/26/2014,02/25/2013,1 07/09/2008,02/09/2009,04/07/2008 Influenza, High-dose, Quadrivalent 03/08/2023,,02/27/2020 Influenza, Quadrivalent, Adjuvanted 04/20/2022 Influenza, Seasonal, Injecta ble, Undefined 03/08/2017,02/26/2014 Influenza, high-dose, trivalent, PF 08/2023,02/27/2020,03/12/2019,2017,03/15/2016 PUR FLU HIGH DOSE (FLUZONE) 03/15/2016 Pneumococcal Vaccine - 13 Valent 08/29/2016,02/26,03/13/2015 Pneumococcal Vaccine Adult - 23 Valent 06/14/2018,11/27/2007 Zoster Vaccine Recombinant 05/13/2019,03/13/2019 Family History Medical History Relation Name Comments Heart Attack Brother Emphysema Father Tuberculosis Father Heart Attack Mother Breast Cancer Sister Relation Name Status Comments Brother (Age 60) Father (Age 82) Mother (Age 64) Sister (Age 80) Social History Tobacco Use Types Packs/Day Years Used Date Smoking Tobacco: Never Smokeless Tobacco: Never Tobacco Cessation:Counseling Given: No Alcohol Use Standard Drinks/Week Comments Yes 2 (1 standard drink = 0.6 oz pur e alcohol) 2 glasses of wine a week [employer] Answer Date Recorded In the past 12 months has [employer], gas, oil, or water [employer] threatened to shut off services in your home? Patient declined 03/21/2024 Social Connection and Isolation Panel Answer Date Recorded In a typical week, how many times do you talk on the phone with family, friends, or neighbors? Patient declined 03/21/2024 How often do you get togethe r with friends or relatives? Patient declined 03/21/2024 How often do you attend jehovah's witness or buddhist serv ices? Patient declined 03/21/2024 Do you belong to any clubs o r organizations such as jehovah's witness groups, unions, fraternal or athletic groups, or [...] Total Score - Questions 1-9 0 09/27 [facility] - Occupational Stress Questionnaire Answer [...] or rent on time? Patient declined 03/21/20 24 In the past 12 months, how m any times have you moved where you were living? 1 03/21/2024 At any time in the past 12 m [facility], were you homeless or living in a group home (including now)? 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 file Not on file Not on yoana e Last Filed Vital Signs Vital Sign Reading Time Taken Comments Blood Pressure 134/78 10/16/2024 8:18 AM CDT Pulse 82 10/16/2024 8:18 AM CDT Temperature 36.2 C (97.2 F) 10/16/2024 8:18 AM CDT Respiratory Rate 16 10/16/2024 8:18 AM CDT Oxygen Saturation 90% 10/16/2024 8:18 AM CDT Inhaled Oxygen Concentration - - Weight 46.3 kg (102 lb) 10/16/2024 8:18 AM CDT Height 152.4 cm (5') 10/16/2024 8:18 AM CDT Body Mass Index 19.92 10/16/2024 8:18 AM CDT Plan of Treatment Upcoming Encounters Date Type Department Care Team (Late st Contact Info) Description 04/18/2025 8:30 AM SCHEDULE MANAGER Office Visit [facility] - Family Medicine [facility] [address] [place] [phone] Eddy Cruz MD [address] [address] Health Maintenance Due Date Last Done Comments Hepatitis C Virus (HCV) Screening 1940 TdaP Immunization 1940 Respiratory Syncytial Virus (RSV) Immunization (Adult) (1 - 1-dose 75+ series) 09/08/2015 DEXA Bone Density 02/10/2024 02/09/2022, , 12/28/2020, Additional history exists SARS-COV-2 Immunization ( season) 2024 03/01/2024, 03/23/2023, 04/20/2022, Additional history exists Pneumococcal Immunization (50+ years) Completed 06/14/2018, 08/29/2016, 03/07/2016, Additional history exists Pneumococcal Immunization Combined Discontinued 06/14/2018, 08/29/2016, 03/07/2016, Additional history exists Zoster Immunization Completed 05/13/2019, 9 Influenza Immunization Completed 4, 03/08/2023, 04/20/2022, Additional history exists Hepatitis B Immunization Aged Out No longer eligible based on patient's age to complete this topic Human Papillomavirus (HPV) Immunization Aged Out No longer eligible based on patient's age to complete this topic Meningococcal Immunization (ACWY) Aged Out No longer eligible based on patient's age to complete this topic Rotavirus Immunization Aged Out No lo nger eligible based on patient's age to complete this topic Procedures Procedure Name Priority Date/Time Associated Diagnosis Comments CMP (COMPREHENSIVE METABOLIC PANEL) Routine 10/09/2024 8:35 AM CDT Essential hypertension Pure hypercholesterolemia LIPID PANEL Routine 10/09/2024 8:35 AM CDT Essential hypertension Pure hypercholesterolemia BONE DENSITY GENERIC Routine 12/28/2020 from Last 3 Months or Most Recently Relevant to Health Maintenance Results * LIPID PANEL (10/09/2024 8:35 AM CDT) CHOLESTEROL 152 <200 mg/dL 10/09/2024 1:00 PM CDT [facility] TRIGLYCERIDES 81 <150 mg/dL 10/09/2024 1:00 PM CDT [facility] HDL CHOLESTEROL 63 >40 mg/dL 1:00 PM CDT [facility] LDL 73 <130 mg/dL 10/09/2024 1:00 PM CDT [facility] VLDL 16 10 - 50 mg/dL 10/09/2024 1:00 PM CDT [facility] CHOL/HDL RATIO 2.4 0.0 - 4.4 10/09/2024 1:00 PM CDT [facility] NON-HDL CHOLESTEROL 89 <130 mg/dL 10/09/2024 1:00 PM CDT [facility] IS THE PATIENT REQUIRED TO BE FASTING? No 10/09/2024 1:00 PM CDT [facility] Blood Venipuncture / Unknown 10/09/2024 8:35 AM CDT 10/09/2024 8:35 AM CDT Eddy Cruz MD CHEMISTRY ORDERABLES Final Re sult [facility] #[address] [place] [address] * (ABNORMAL) CMP (COMPREHENSIVE METABOLIC PANEL) (10/09/2024 8:35 AM CDT) SODIUM 133(L) 136 - 145 mmol/L 10/09/2024 1:00 PM CDT [facility] POTASSIUM 4.1 3.5 - 5.1 mmol/L 10/09/2024 1:00 PM CDT [facility] CHLORIDE 101 98 - 107 mmol/L 10/09/2024 1:00 PM CDT [facility] CO2, VENOUS 25 22 - 30 mmol/L 10/09/2024 1:00 PM CDT [facility] ANION GAP 11.1 <18.0 mmol/L 10/09/2024 1:00 PM CDT [facility] GLUCOSE 86 70 - 99 mg/dL 10/09/2024 1:00 PM CDT [facility] BUN 12 10 - 20 mg/dL 10/09/2024 1:00 PM CDT [facility] CREATININE, BLOOD 0.66 0.60 - 1.00 mg/dL 10/09/2024 1:00 PM CDT [facility] BUN/CREATININE RATIO 18 12 - 20 ratio 10/09/2024 1:00 PM CDT [facility] TOTAL PROTEIN 7.9 6.0 - 8.0 g/dL 10/09/2024 1:00 PM CDT [facility] ALBUMIN 3.9 3.5 - 5.0 g/dL 10/09/2024 1:00 PM CDT [facility] A/G RATIO 1.0 1.0 - 2.2 10/09/2024 1:00 PM CDT [facility] CALCIUM 8.9 8.7 - 10.5 mg/dL 10/09/2024 1:00 PM CDT [facility] T BILI 0.4 0.2 - 1.2 mg/dL 10/09/2024 1:00 PM CDT [facility] SGOT (AST) 29 <43 U/L 10/09/2024 1:00 PM CDT [facility] SGPT (ALT) 19 <56 U/L 10/09/2024 1:00 PM CDT [facility] ALKALINE PHOSPHATASE 53 40 - 150 U/L 10/09/2024 1:00 PM CDT [facility] IS THE PATIENT REQUIRED TO BE FASTING? No 10/09/2024 1:00 PM CDT [facility] GFR, ESTIMATED >60 >=60 10/09/2024 1:00 PM CDT [facility] Comment: Creatinine Clearance is the preferred criteria for selecting drug dose adjustments in renally impaired patients. The GFR is provided as additional pertinent clinical information. GFR is reported in mL/min/1.73 sq m. Calculation based on the Chronic Kidney Disease Epidemiology Collaboration (CKD- EPI) equation refit without adjustment for race. GFR, EST. >60 >=60 025 1:00 PM CDT [facility] GFR, EST. NONAFRICAN >60 >=60 10/09/2024 1:00 PM CDT [facility] Blood Venipuncture / Unknown 10/09/2024 8:35 AM CDT 10/09/2024 8:35 AM CDT us Eddy Cruz MD CHEMISTRY ORDERABLES Final Re sult [facility] [address] [place] [address] * BONE DENSITY GENERIC SCAN (12/28/2020) us Megan Oliver MD IMG DEXA ORDERABLE S Final Result from Last 3 Months or Most Recently Relevant to Health Maintenance Insurance [facility] MEDICARE Advance Directives Documents on File Type Date Recorded Patient Hair Clipper Power Expl anation Power of Space Scheduler for Health Care 04/19/2024 8:21 AM Power of health care attorney of health Power of Space Scheduler for Health Care 03/18/2019 10:52 AM POA HC 03/18/19 Advance Care Planning Discussion 03/18/2019 10:52 AM ACP Discussion Recor d 03/18/19 Advance Care Planning Discussion 03/18/2019 10:51 AM ACP Cover sheet 03/18/19 Care Teams Institution Librarian Relationship Specialty Start Date End Date Eddy Cruz MD #[address] [address] PCP - General Family Medicine 06/10/15 Loreto Espinosa APRN, DATA SECURITY CONSULTANT [address] [address] Nurse Practitioner Advanced Practice Nurse 05/05/16 Allen Easton MD [address] [place] [address] Consulting Physician Neurology 09/27/21
--- OUTSIDE RECORDS SUMMARY | 2024-11-14 10:41 | XMS_ITS | Encounter Summary ---
Author Organization [facility] Address [address] 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 Please call in * Telephone Encounter - Savannah Sparrow RN - 12/14/2020 2:30 PM CDT Medication warning Per nursing clinical judgement, provider to review and approve the medication(s) order(s) if appropriate. Requested Prescriptions Pending Prescriptions Disp Refills omeprazole (PriLOSEC) 40 MG CAPSULE DELAYED RELEASE [Pharmacy Med Name: OMEPRAZOLE 40MG CAP] 90 Capsule 3 Sig: TAKE 1 CAPSULE BY MOUTH DAILY Proton Pump Inhibitors Protocol Passed - 12/13/2020 8:02 PM Passed - Visit with relevant provider in past 12 months or upcoming 90 days Recent Visits Date Type Provider Dept 06/26/20 Office Visit Eddy Curz MD [facility] 12/24/19 Office Visit Eddy Cruz MD [facility] Showing recent visits within past 365 days and meeting all other requirements Future Appointments Date Type Provider Dept 12/22/20 Appointment Eddy Cruz MD [facility] Showing future appointments within next 90 days and meeting all other requirements documented in this encounter Plan of Treatment Upcoming Encounters Date Type Department Care Team (Late st Contact Info) Description 04/18/2025 8:30 AM WET END OPERATOR Office Visit [facility] - Family Medicine - [place] [address] [place] [address] Eddy Cruz MD [address] [address] documented as of this encounter Visit Diagnoses Not on filedocumented in this encounter Additional Health Concerns Assessment Noted Time PHQ-9 Depression Total Score: 0 06/26/19 8:55 AM WET END OPERATOR documented as of this encounter Care Teams Glass Cutter Relationship Specialty Start Date End Date Eddy Cruz MD [address] [address] PCP - General Family Medicine 06/10/15 Loreto Espinosa APRN, [employer] [address] [address] Nurse Practitioner Advanced Practice Nurse 05/05/16 Allen Easton MD [address] [place] [id number] Consulting Physician Neurology 09/27/21 documented as of this encounter
--- OUTSIDE RECORDS SUMMARY | 2024-11-14 10:42 | XMS_ITS | Clinical Summary ---
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 Role Phone Eddy Cruz MD Primary Care Provider [phone] Jose Angel Parr MD Unavailable [phone] Megan Oliver MD Unavailable + Allergies Active Allergy Reactions Criticality Noted Date Comments Amoxicillin-Pot Clavulanate Other (See comments),Vomiting Low 09/16/2015 Reaction: Other reaction(s): Vomiting Medications simvastatin (ZOCOR) 40 mg tablet take 1 tablet (40MG) by oral route every day in the evening 0 0 Active Additional Information Patient not taking.Reported on 09/18/2024 aspirin 81 mg tablet take 1 tablet (81MG) by oral route every day 0 0 Active calcium carbonate-vitam in D3 1,500 mg (600mg elemental) -800 unit per tablet Take one by mouth one time per day 0 0 7 Active golimumab (SIMPONI ARIA) 12.5 mg/mL solution infuse (2MG/KG) by intravenous route every 8 weeks over 0 vial 0 7 Active montelukast (SINGULAIR) 10 mg tablet Take one by mouth one time per day 0 0 8 Active Additional Information Patient not taking.Reported on 09/18/2024 cycloSPORINE (RESTASIS) 0.05 % ophthalmic emulsion Take as directed 0 0 9 Active Additional Information Patient not taking.Reported on 09/18/2024 fluticasone furoate-vilante roL (BREO ELLIPTA) 100-25 mcg/dose diskus inhaler Inhale 6 Active fluticasone (FLONASE) 50 mcg/actuation nasal spray Administer into affected nostril(s) Active multivitamin tablet tabletIndicatio ns:Vitamin Deficiency Prevention,stop 5 days before surgery Take by mouth. Activ e omeprazole (PriLOSEC) 40 mg capsule Take 1 capsule (40 mg total) by mouth 6 Active estrogens, conjugated, (PREMARIN) vaginal cream Insert into the vagina 2 (two) times a week. 5 Active cetirizine (ZyrTEC) 10 mg tablet Take 1 tablet (10 mg total) by mouth nightly Active losartan (COZAAR) 100 mg tablet TAKE 1 TABLET BY MOUTH DAILY 0 Active methotrexate 2.5 mg tabletIndicatio ns:Rheumatoid Arthritis Take 4 tablets (10 mg total) by mouth every 7 days 48 tablet 2 Active meclizine (ANTIVERT) 12.5 mg tablet Take 1 tablet (12.5 mg total) by mouth every 8 (eight) hours as needed 4 Active valACYclovir (VALTREX) 1 gram tablet Take 1 tablet (1,000 mg total) by mouth 3 (three) times a day 4 Active folic acid (FOLVITE) 1 mg tablet TAKE 2 TABLETS BY MOUTH DAILY 180 tablet 3 5 Active donepeziL (ARICEPT) 5 mg tablet Take by mouth nightly Active Active Problems Problem Noted Date Diagnosed Date Primary generalized (osteo)arthritis 08/03/2021 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 Abnormal mammogram 01/22/2018 Overview (01/22/2018): Added automatically from request for surgery [id number] High risk medication use 12/07/2016 Hypertension 12/07/2016 Pure hypercholesterolemia 09/16/2015 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/2013 Overview (09/01/2016): RHEUMATOID ARTHRITIS Hiatal hernia 10/12/2013 Overview (09/01/2016): Hiatal hernia Atherosclerosis of coronary artery 10/12/2013 Overview (09/02/2016): COR ATH UNSP VSL NTV/GFT Osteoporosis 09/11/2013 Overview (12/07/2016): Osteoporosis Surgical follow-up care 06/04/2013 Fracture of femur 05/24/2013 Herpes simplex virus (HSV) infection 06/12/2012 Overview (09/01/2016): HERPES SIMPLEX NOS Encounters Date Type Department Care Team Description 10/09/2024 Documentation [facility] Rheumatology at [facility] [address] [place] [address] Megan Oliver MD [facility] Infusion order [facility] 10/09/2024 Orders Only [facility] [address] [phone] Megan Oliver MD Seropositive rheumatoid arthritis of multiple sites (HCC) (Primary Dx) 10/08/2024 8:00 AM CDT Infusion [facility] [address] [place] [phone] Seropositive rheumatoid arthritis of multiple sites (HCC) (Primary Dx) 10/08/2024 7:45 AM CDT Lab [facility] [address] [place] [phone] Seropositive rheumatoid arthritis of multiple sites (HCC); Osteoporosis without current pathological fracture, unspecified osteoporosis type; Primary generalized (osteo)arthritis; Encounter for long-term (current) use of medications; Encounter for medication monitoring 09/18/2024 11:42 AM CDT - 09/18/2024 11:59 PM CDT Hospital Encounter [facility] [address] [place] [address] Discharge Disposition: Discharge to home or self care 09/18/2024 8:30 AM CDT Office Visit [facility] Rheumatology at [facility] [address] [place] [address] Megan Oliver MD Seropositive rheumatoid arthritis of multiple sites (HCC) (Primary Dx); Osteoporosis without current pathological fracture, unspecified osteoporosis type; Primary generalized (osteo)arthritis; Encounter for long-term (current) use of medications; Encounter for medication monitoring; Memory disorder from Last 3 Months Immunizations Immunization Administration Dates Next Due H1N1 All Forms 05/08/2009 Influenza, Quadrivalent, Hig h Dose, Preservative Free, Intrr 03/08/2023,04/20/2022,02/27/2020 Influenza, Trivalent, High D ose, Split, Preservative Free, Intramuscular 03/12/2019,03/23/2018,03/09/2017,03/15,03/02/2015,02/25/2013 Influenza, Trivalent, IM (MDV) 7,02/26/2014,02/09/2009,04/07 Influenza, Unspecified 03/23/2018 Moderna SARS-CoV-2 Monovalen t Vaccination (12+ YRS) 07/02/2020 Moderna Sars-cov-2 Bivalent Vaccine 50 Mcg/0.5 mL (12+ YRS)-Blue/Alston 04/20/2022 Moderna Sars-cov-2 Monovalen t Booster Vaccination .25 Ml dose (12+ YRS) 04/02/2021 Pfizer SARS-CoV-2 Monovalent Vaccination (12+ Yrs) PURPLE 09/10/2021 Pfizer Sars-Cov-2 Bivalent V accination (12+ YRS) 04/20/2022 Pneumococcal Conjugate PCV 13 08/29/2016, 016,03/13/2015 Pneumococcal Polysaccharide PPV23 06/14/2018,05/2007 ZOSTER Recombinant 05/13/2019,03/13/2019 Surgical History Surgery Date Site/Laterality Comments OTHER SURGICAL HISTORY right hip fracture: ORIF TUBAL LIGATION OTHER SURGICAL HISTORY Right Repair of fractured right hip and right leg BREAST BIOPSY Breast biopsy BREAST BIOPSY 01/12/2018 Left BREAST BIOPSY 02/15/2018 Left Excisional Biopsy of Left Breast with XRNL BREAST LUMPECTOMY Bilateral Benign Medical History Medical History Date Comments Hx Other Medical Sciatica Hypertension Hypertension Hx Other Medical Varicella zoste r Hx Other Medical right hip fract ure Pneumonia 3 to 4 times Seasonal allergies PONV (postoperative nausea and vomiting) Coronary artery disease Hyperlipidemia Arthritis RA Rheumatoid arthritis (HCC) Family History Medical History Relation Name Comments Heart disease Brother 1 Colon cancer Brother 2 Cancer -colon; Hypertension Brother 2 Coronary artery disease Brother 3 Sherif Heart disease Brother 3 Sherif Hypertension Brother 3 Sherif Coronary artery disease Mother Rhianna nary artery disease; Cause of : Coronary artery disease Heart disease Mother Breast cancer Sister 1 bertha Cancer Sister 1 bertha Coronary artery disease Sister 1 bertha Rhianna nary artery disease; Hypertension Sister 2 Coronary artery disease Sister 3 Hypertension Sister 3 Hip fracture Neg Hx Osteoporosis Neg Hx Scoliosis Neg Hx Relation Name Status Comments Brother 1 (Age 64) Brother 2 Alive Brother 3 Sherif Alive Father Mother (Age 64) Sister 1 bertha Sister 2 Alive Sister 3 Alive Social History Tobacco Use Types Packs/Day Years Used Date Smoking Tobacco: Never Smokeless Tobacco: Never Tobacco Cessation:Counseling Given: Not Answered Alcohol Use Standard Drinks/Week Comments Yes 0 (1 standard drink = 0.6 oz pure alcohol) usually on Wednesdays / glass Wine AUDIT-C Answer Date Recorded Q1: How often do you have a drink containing alc ohol? 2-3 times a week 04/01/2021 Average Number of Drinks Not on file 021 Q3: How often do you have si x or more drinks on one occasion? 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 Gender Identity Not on file Sexual Orientation Not on file Obstetrics History Para Term AB IAB SAB Ectopic Multiple Livin g Live Births 1 1 1 Date Outcome GA Total Labor Labor/2nd/3rd Weight Sex Type Anes PTL Maegan A1 A5 Name Clin Term Last Filed Vital Signs Vital Sign Reading Time Taken Comments Blood Pressure 167/70 10/08/2024 8:00 AM CDT Pulse 79 10/08/2024 8:00 AM CDT Temperature 36.7 C (98 F) 10/08/2024 8:00 AM CDT Respiratory Rate 16 10/08/2024 8:00 AM CDT Oxygen Saturation 100% 10/08/2024 8:00 AM CDT Inhaled Oxygen Concentration - - Weight 47 kg (103 lb 11.2 oz) 10/08/2024 8:00 AM CDT Height 149.9 cm (4' 11) 09/18/2024 8:43 AM CDT Body Mass Index 20.94 09/18/2024 8:43 AM CDT Plan of Treatment Health Maintenance Due Date Last Done Comments Depression Screening 1940 DTaP/Tdap/Td Vaccine (1 - Tdap) 09[birth year]08/1951 Hepatitis B Screening 1958 Well Visit 65+ 2005 Covid-19 Vaccine (5 2023-2 5 season) 2024 04/20/2022, 04/20/2022, 09/10/2021, Additional history exists Fall Risk Assessment 10/08/2025 10/08/2024, 08/13/2024, 06/18/2024, Additional history exists Osteoporosis Screening-Bone Density Scan 02/20/2026 02/21/2024, 02/17/2023, 02/09/2022, Additional history exists Pneumococcal vaccine 65+ Completed 019, 08/29/2016, 03/07/2016, Additional history exists Zoster Vaccine Completed 05/13/2019, 03/13/2019 Influenza Vaccine Completed 03/01/2024, , 04/20/2022, Additional history exists Procedures Procedure Name Priority Date/Time Associated Diagnosis Comments URINALYSIS AND REFLEX TO MICROSCOPIC AND CULTURE Routine 10/08/2024 7:47 AM CDT Seropositive rheumatoid arthritis of multiple sites (HCC) Osteoporosis without current pathological fracture, unspecified osteoporosis type Primary generalized (osteo)arthritis Encounter for long-term (current) use of medications Encounter for medication monitoring EGFR Routine 10/08/2024 7:44 AM CDT Seropositive rheumatoid arthritis of multiple sites (HCC) Osteoporosis without current pathological fracture, unspecified osteoporosis type Primary generalized (osteo)arthritis Encounter for long-term (current) use of medications Encounter for medication monitoring DIFFERENTIAL AUTO Routine 10/08/2024 7:4 4 AM CDT Seropositive rheumatoid arthritis of multiple sites (HCC) Osteoporosis without current pathological fracture, unspecified osteoporosis type Primary generalized (osteo)arthritis Encounter for long-term (current) use of medications Encounter for medication monitoring CBC WITH AUTO DIFFERENTIAL Routine 10/08/2024 7:44 AM CDT Seropositive rheumatoid arthritis of multiple sites (HCC) Osteoporosis without current pathological fracture, unspecified osteoporosis type Primary generalized (osteo)arthritis Encounter for long-term (current) use of medications Encounter for medication monitoring COMPREHENSIVE METABOLIC PANEL Routine 10/08/2024 7:44 AM CDT Seropositive rheumatoid arthritis of multiple sites (HCC) Osteoporosis without current pathological fracture, unspecified osteoporosis type Primary generalized (osteo)arthritis Encounter for long-term (current) use of medications Encounter for medication monitoring EGFR Routine 09/18/2024 9:16 AM CDT Seropositive rheumatoid arthritis of multiple sites (HCC) Osteoporosis without current pathological fracture, unspecified osteoporosis type Primary generalized (osteo)arthritis Encounter for long-term (current) use of medications Encounter for medication monitoring Memory disorder URINALYSIS, MICROSCOPIC ONLY Routine 09/18/2024 9:16 AM CDT Seropositive rheumatoid arthritis of multiple sites (HCC) Osteoporosis without current pathological fracture, unspecified osteoporosis type Primary generalized (osteo)arthritis Encounter for long-term (current) use of medications Encounter for medication monitoring Memory disorder DIFFERENTIAL AUTO Routine 09/18/2024 9:1 6 AM CDT Seropositive rheumatoid arthritis of multiple sites (HCC) Osteoporosis without current pathological fracture, unspecified osteoporosis type Primary generalized (osteo)arthritis Encounter for long-term (current) use of medications Encounter for medication monitoring Memory disorder CBC WITH AUTO DIFFERENTIAL Routine 09/18/2024 9:16 AM CDT Seropositive rheumatoid arthritis of multiple sites (HCC) Osteoporosis without current pathological fracture, unspecified osteoporosis type Primary generalized (osteo)arthritis Encounter for long-term (current) use of medications Encounter for medication monitoring Memory disorder COMPREHENSIVE METABOLIC PANEL Routine 09/18/2024 9:16 AM CDT Seropositive rheumatoid arthritis of multiple sites (HCC) Osteoporosis without current pathological fracture, unspecified osteoporosis type Primary generalized (osteo)arthritis Encounter for long-term (current) use of medications Encounter for medication monitoring Memory disorder URINALYSIS AND REFLEX TO MICROSCOPIC AND CULTURE Routine 09/18/2024 9:16 AM CDT Seropositive rheumatoid arthritis of multiple sites (HCC) Osteoporosis without current pathological fracture, unspecified osteoporosis type Primary generalized (osteo)arthritis Encounter for long-term (current) use of medications Encounter for medication monitoring Memory disorder DEXA TBS AXIAL SKELETON BONE DENSITY 1 OR MORE SITES Schedule Routine, Read Routine (OP Routine) 02/21/2024 12:10 PM CDT Age-related osteoporosis without current pathological fracture from Last 3 Months or Most Recently Relevant to Health Maintenance Results * Urinalysis reflex to microscopic and culture Urine, clean voided (10/08/2024 7:47 AM CDT) Color, ur Yellow Yellow Clarity, ur Clear Clear [facility] Specific gravity, ur 1.016 1.003 - 1.030 [facility] pH, urine 7.0 [facility] Comment: Interpretive Data U rine pH is affected by diet, medications, systemic acid-base disturbances, and renal tubular function. pH may affect urinary stone formation. For example, urine pH below 6.0 may help reduce the tendency for calcium phosphate stones and pH greater than 6.0 may reduce the tendency for uric acid stone formation. Source: [facility] [employer] Current Interpretive Data was last revised on 2017 Protein, ur ql Negative Negative [facility] Glucose, ur ql Negative Negative [facility] Ketones, ur Negative Negative [facility] Bilirubin, ur Negative Negative [facility] Blood, ur Negative Negative [facility] Urobilinogen, ur <2.0 <2.0 mg/dL [facility] Nitrite, ur Negative Negative [facility] Leukocyte esterase, ur Negative Negative [facility] UA reflex comment Reflex conditions for microscopic UA and culture not met. [facility] Urine, clean voided 10/08/2024 7:47 AM CDT 10/08/2024 8:03 AM CDT us Megan Oliver MD LAB MICROBIOLOGY - GENERAL ORDERABLES Final Result Performing Organization Address [facility] Co de Phone Number [facility] [address] [place] [address] * eGFR (10/08/2024 7:44 AM CDT) eGFR 90 >=60 mL/min/1. 73 m2 Comment: Interpretive Data Reference Interval Normal >/= 90 mL/min/1.73m2 Mildly decreased* 60 - 89 mL/min/1.73m2 Mildly to moderately decreased 45 - 59 mL/min/1.73m2 Moderately to severely decreased 30 - 44 mL/min/1.73m2 Severely decreased 15 - 29 mL/min/1.73m2 Kidney Failure < 15 mL/min/1.73m2 *Relative to young adult level Estimated glomerular filtration rate is determined by the 2020 CKD-EPI equation recommended by the National Kidney Foundation (A Unifying Approach to GFR Estimation: Recommendations of the NKF-ASK Task Force on Reassessing the Inclusion of Race in Diagnosing Kidney Disease, JASN 202). The CKD-EPI equation should not be used for patients with unstable renal function and has not been validated in children and those over 70. Current interpretive data was last reviewed 2021. Blood 10/08/2024 7:44 AM CDT 10/08/2024 8:11 AM CDT us Megan Oliver MD LAB BLOOD ORDERABL ES Final Result Performing Organization Address [facility] Co de Phone Number [facility] [address] Department [place] [address] * Differential, auto (10/08/2024 7:44 AM CDT) Neutrophil abs 2.72 1.50 - 6.50 K/cumm Imm gran abs 0.01 0.00 - 0.10 K/cumm [facility] Lymphocyte abs 1.40 0.80 - 3.30 K/cumm [facility] Monocyte abs 0.78 0.20 - 0.80 K/cumm [facility] Eosinophil abs 0.22 0.00 - 0.50 K/cumm [facility] Basophil abs 0.04 0.00 - 0.10 K/cumm [facility] Neutrophil pct 52.5 % [facility] Comment: Interpretive Data Percent cell count reference ranges are not reported, since discordance with absolute values may lead to misinterpretation of CBC data. Current Interpretive Data was last revised on 2017. Imm gran pct 0.2 % [facility] Comment: Interpretive Data Percent cell count reference ranges are not reported, since discordance with absolute values may lead to misinterpretation of CBC data. Current Interpretive Data was last revised on 2017. Lymphocyte pct 27.1 % [facility] Comment: Interpretive Data Percent cell count reference ranges are not reported, since discordance with absolute values may lead to misinterpretation of CBC data. Current Interpretive Data was last revised on 2017. Monocyte pct 15.1 % [facility] Comment: Interpretive Data Percent cell count reference ranges are not reported, since discordance with absolute values may lead to misinterpretation of CBC data. Current Interpretive Data was last revised on 2017. Eosinophil pct 4.3 % [facility] Comment: Interpretive Data Percent cell count reference ranges are not reported, since discordance with absolute values may lead to misinterpretation of CBC data. Current Interpretive Data was last revised on 2017. Basophil pct 0.8 % [facility] Comment: Interpretive Data Percent cell count reference ranges are not reported, since discordance with absolute values may lead to misinterpretation of CBC data. Current Interpretive Data was last revised on 2017. Blood 10/08/2024 7:44 AM CDT 10/08/2024 7:44 AM CDT Megan Oliver MD LAB BLOOD ORDERABL ES Final Result Performing Organization Address City/[facility]/ZIP Co de Phone Number [facility] [address] [place] [address] * (ABNORMAL) CBC with auto differential (10/08/2024 7:44 AM CDT) [facility] WBC 5.17 3.80 - 9.90 K/cumm Hgb 12.6 11.9 - 15.5 g/dL [facility] Hct 37.6 35.6 - 45.5 % [facility] Plt 242 150 - 400 K/cumm [facility] MPV 8.6(L) 9.1 - 12.3 fL [facility] RBC 3.97 3.90 - 5.20 M/cumm [facility] MCV 94.7 81.3 - 96.4 fL [facility] MCH 31.7 27.1 - 33.3 pg [facility] MCHC 33.5 32.3 - 35.7 g/dL [facility] RDW CV 13.2 11.1 - 14.9 % [facility] RDW SD 46.0 35.7 - 48.1 fL [facility] NRBC abs 0.00 0.00 - 0.01 K/cumm [facility] ANC Prelim 2.72 1.50 - 6.50 K/cumm [facility] Comment: Interpretive Data The rapid ANC is a preliminary automated count and may vary from the final ANC (Neut Abs) reported in the WBC differential that follows. Current interpretive data was last revised 2024. Blood 10/08/2024 7:44 AM CDT 10/08/2024 7:44 AM CDT us Megan Oliver MD LAB BLOOD ORDERABL ES Final Result [facility] [address] Department of Laboratories [place], [place] [id number] * (ABNORMAL) Comprehensive metabolic panel (10/08/2024 7:44 AM CDT) Sodium 136 135 - 145 mmol/L Potassium, pl 3.9 3.3 - 4.9 mmol/L [facility] Chloride 99 97 - 110 mmol/L [facility] CO2 27 22 - 32 mmol/L [facility] Anion gap 10 2 - 15 mmol/L [facility] BUN 16 6 - 25 mg/dL [facility] Creatinine 0.56(L) 0.60 - 1.10 mg/dL [facility] Glucose 93 70 - 199 mg/dL [facility] Comment: Interpretive Data Fasting glucose >/= 126 mg/dl is diagnostic for diabetes. Fasting is defined as no caloric intake for at least 8 hours. Fasting glucose between 100 mg/dl to 125 mg/dl is diagnostic of prediabetes. In a patient with classic symptoms of hyperglycemia or hyperglycemic crisis, a random glucose >/= 200 mg/dl is diagnostic for diabetes. In the absence of unequivocal hyperglycemia, results should be confirmed by repeat testing. The classification and Diagnosis of Diabetes Diabetes Care 2021; 46: S19-S40. Current interpretive data was last revised 2022. Calcium 9.1 8.5 - 10.3 mg/dL [facility] Bilirubin, total 0.3 0.1 - 1.2 mg/dL [facility] Protein, pl 7.4 6.5 - 8.5 g/dL [facility] Albumin 3.9 3.5 - 5.0 g/dL [facility] Alk phos 61 40 - 130 Units/L [facility] ALT 17 7 - 45 Units/L [facility] AST 28 10 - 45 Units/L [facility] Blood 10/08/2024 7:44 AM CDT 10/08/2024 8:11 AM CDT us Megan Oliver MD LAB BLOOD ORDERABL ES Final Result [facility] [address] Department [place] [address] * eGFR (09/18/2024 9:16 AM CDT) [facility] eGFR 88 >=60 mL/min/1. 73 m2 Comment: Interpretive Data Reference Interval Normal >/= 90 mL/min/1.73m2 Mildly decreased* 60 - 89 mL/min/1.73m2 Mildly to moderately decreased 45 - 59 mL/min/1.73m2 Moderately to severely decreased 30 - 44 mL/min/1.73m2 Severely decreased 15 - 29 mL/min/1.73m2 Kidney Failure < 15 mL/min/1.73m2 *Relative to young adult level Estimated glomerular filtration rate is determined by the 2020 CKD-EPI equation recommended by the National Kidney Foundation (A Unifying Approach to GFR Estimation: Recommendations of the NKF-ASK Task Force on Reassessing the Inclusion of Race in Diagnosing Kidney Disease, JASN 2020). The CKD-EPI equation should not be used for patients with unstable renal function and has not been validated in children and those over 70. Current interpretive data was last reviewed 2021. Blood 09/18/2024 9:16 AM CDT 09/18/2024 12:40 PM CDT us Megan Oliver MD LAB BLOOD ORDERABL ES Final Result [facility] [address] Department [place] [address] * (ABNORMAL) Differential, auto (09/18/2024 9:16 AM CDT) Neutrophil abs 1.98 1.50 - 6.50 K/cumm Imm gran abs 0.02 0.00 - 0.10 K/cumm [facility] Lymphocyte abs 1.37 0.80 - 3.30 K/cumm [facility] Monocyte abs 0.90(H) 0.20 - 0.80 K/cumm [facility] Eosinophil abs 0.06 0.00 - 0.50 K/cumm [facility] Basophil abs 0.03 0.00 - 0.10 K/cumm [facility] Neutrophil pct 45.4 % [facility] Comment: Interpretive Data Percent cell count reference ranges are not reported, since discordance with absolute values may lead to misinterpretation of CBC data. Current Interpretive Data was last revised on 2017. Imm gran pct 0.5 % [facility] Comment: Interpretive Data Percent cell count reference ranges are not reported, since discordance with absolute values may lead to misinterpretation of CBC data. Current Interpretive Data was last revised on 2017. Lymphocyte pct 31.4 % [facility] Comment: Interpretive Data Percent cell count reference ranges are not reported, since discordance with absolute values may lead to misinterpretation of CBC data. Current Interpretive Data was last revised on 2017. Monocyte pct 20.6 % [facility] Comment: Interpretive Data Percent cell count reference ranges are not reported, since discordance with absolute values may lead to misinterpretation of CBC data. Current Interpretive Data was last revised on 2017. Eosinophil pct 1.4 % [facility] Comment: Interpretive Data Percent cell count reference ranges are not reported, since discordance with absolute values may lead to misinterpretation of CBC data. Current Interpretive Data was last revised on 2017. Basophil pct 0.7 % [facility] Comment: Interpretive Data Percent cell count reference ranges are not reported, since discordance with absolute values may lead to misinterpretation of CBC data. Current Interpretive Data was last revised on 2017. Blood 09/18/2024 9:16 AM CDT 09/18/2024 12:40 PM CDT us Megan Oliver MD LAB BLOOD ORDERABL ES Final Result [facility] [address] [place] [address] * (ABNORMAL) Urinalysis reflex to microscopic and culture Urine, clean voided (09/18/2024 9:16 AM CDT) Color, ur Yellow Yellow Clarity, ur Clear Clear [facility] Specific gravity, ur 1.022 1.003 - 1.030 [facility] pH, urine 6.5 [facility] Comment: Interpretive Data U rine pH is affected by diet, medications, systemic acid-base disturbances, and renal tubular function. pH may affect urinary stone formation. For example, urine pH below 6.0 may help reduce the tendency for calcium phosphate stones and pH greater than 6.0 may reduce the tendency for uric acid stone formation. Source: [facility] Current Interpretive Data was last revised on 2017 Protein, ur ql Trace Negative [facility] Glucose, ur ql Negative Negative [facility] Ketones, ur Negative Negative [facility] Bilirubin, ur Negative Negative [facility] Blood, ur 1+(A) Negative [facility] Urobilinogen, ur <2.0 <2.0 mg/dL [facility] Nitrite, ur Negative Negative [facility] Leukocyte esterase, ur Negative Negative [facility] UA reflex comment Reflex to microscopic UA will be performed. [facility] Urine, clean voided 09/18/2024 9:16 AM CDT 09/18/2024 9:16 AM CDT us Meagn Oliver MD LAB MICROBIOLOGY - GENERAL ORDERABLES Final Result [facility] [address] [place] [address] * (ABNORMAL) CBC with auto differential (09/18/2024 9:16 AM CDT) WBC 4.36 3.80 - 9.90 K/cumm Hgb 12.7 11.9 - 15.5 g/dL [facility] Hct 39.8 35.6 - 45.5 % [facility] Plt 234 150 - 400 K/cumm [facility] MPV 9.7 9.1 - 12.3 fL [facility] RBC 4.00 3.90 - 5.20 M/cumm [facility] MCV 99.5(H) 81.3 - 96.4 fL [facility] MCH 31.8 27.1 - 33.3 pg [facility] MCHC 31.9(L) 32.3 - 35.7 g/dL [facility] RDW CV 13.9 11.1 - 14.9 % [facility] RDW SD 51.0(H) 35.7 - 48.1 fL [facility] NRBC abs 0.00 0.00 - 0.01 K/cumm [facility] Blood 09/18/2024 9:16 AM CDT 09/18/2024 12:40 PM CDT Megan Oliver MD LAB BLOOD ORDERABL ES Final Result Performing Organization Address [facility] Co de Phone Number [facility] [address] Department [place] [address] * (ABNORMAL) Urinalysis, microscopic only (09/18/2024 9:16 AM CDT) WBC, ur 0-5 0 - 5 /HPF RBC, ur 6-10(A) 0 - 2 /HPF [facility] Epithelial cells, squamous, ur 1-5 0 - 5 /HPF [facility] Mucous, ur Present(A) [facility] Culture Reflex Comment Reflex conditions for urine culture (WBC >10) not met. [facility] Urine, clean voided 09/18/2024 9:16 AM CDT 09/18/2024 12:40 PM CDT Megan Oliver MD LAB URINE ORDERABL ES Final Result Performing Organization Address [facility] Co de Phone Number [facility] [address] [place] [address] * Comprehensive metabolic panel (09/18/2024 9:16 AM CDT) Sodium 136 135 - 145 mmol/L Potassium, pl 4.2 3.3 - 4.9 mmol/L [facility] Chloride 99 97 - 110 mmol/L [facility] CO2 27 22 - 32 mmol/L [facility] Anion gap 10 2 - 15 mmol/L [facility] BUN 15 6 - 25 mg/dL [facility] Creatinine 0.60 0.60 - 1.10 mg/dL [facility] Glucose 91 70 - 199 mg/dL [facility] Comment: Interpretive Data Fasting glucose >/= 126 mg/dl is diagnostic for diabetes. Fasting is defined as no caloric intake for at least 8 hours. Fasting glucose between 100 mg/dl to 125 mg/dl is diagnostic of prediabetes. In a patient with classic symptoms of hyperglycemia or hyperglycemic crisis, a random glucose >/= 200 mg/dl is diagnostic for diabetes. In the absence of unequivocal hyperglycemia, results should be confirmed by repeat testing. The classification and Diagnosis of Diabetes Diabetes Care 202; 46: S19-S40. Current interpretive data was last revised 2022. Calcium 9.1 8.5 - 10.3 mg/dL [facility] Bilirubin, total 0.3 0.1 - 1.2 mg/dL [facility] Protein, pl 7.7 6.5 - 8.5 g/dL [facility] Albumin 4.1 3.5 - 5.0 g/dL [facility] Alk phos 58 40 - 130 Units/L [facility] ALT 17 7 - 45 Units/L [facility] AST 28 10 - 45 Units/L [facility] Blood 09/18/2024 9:16 AM CDT 09/18/2024 12:40 PM CDT us Megan Oliver MD LAB BLOOD ORDERABL ES Final Result [facility] [address] [place] [address] * Dexa TBS Axial Skeleton Bone Density 1 or more sites (02/21/2024 12:10 PM CDT) Anatomical Region Laterality Modality Wrist, Body N/A Radiographic Sloane ging Narrative 02/21/2024 2:40 PM CDT Patient Name: Dayana Gamez Date of : 1940 Date of scan: 02/21/2024 Bone mineral density was performed on a Holo[employer] Discovery Densitometer. Based on machine cross-calibration and precision studies the least significant changes of this densitometer is 0.024 g/cm2 at the spine, 0.020 g/cm2 at the total proximal femur, and 0.014g/cm2 at the forearm. HISTORY: This is a 83 y.o. postmenopausal female with a history of osteoporosis and rheumatoid arthritis. She reports that she has never smoked. She has never used smokeless tobacco. Currently on treatment with calcium, previously treated with alendronate (Fosamax), denosumab (Prolia), glucocorticoids, and hormone replacement therapy, and current complaint of leg pain. INDICATIONS: Menopause status, history of glucocorticoids use, and history of osteoporosis. FINDINGS: BONE MINERAL DENSITY OF THE LUMBAR SPINE Bone Mineral Density (BMD) of the lumbar spine was measured from L1-L4 and the average density was calculated to be 1.026 gm/cm2. This corresponds to a T-score (standard deviations from the mean of young adults) of -0.2. When compared to the previous study of 02/17/2023 there has been a -0.046 gm/cm (-4.3%) decrease in bone density that is considered significant. BONE MINERAL DENSITY OF THE PROXIMAL FEMUR Bone Mineral Density (BMD) of the left hip total was found to be 0.620 gm/cm2. This corresponds to a T-score standard deviations from the mean of young adults of -2.6. Femoral neck is 0.522 gm/cm2 with a T-score (standard deviations from the mean of young adults) of -2.9. When compared to the previous study of 02/17/2023 there has been no significant changes in bone density. BONE MINERAL DENSITY OF THE FOREARM Bone Mineral density (BMD) of the left proximal 1/3 of the radius measures 0.466 gm/cm2. This corresponds to a T-score (standard deviations from the mean of young adults) of -3.8. When compared to the previous study of 02/17/2023 there has been no significant changes in bone density. A forearm bone density study was performed in addition to the routine study because of forearm protocol . SUMMARY: Bone mineral density shows evidence of osteoporosis and marked increase risk of fracture. There has been a significant decrease in bone density since previous measurement. The lumbar spine Trabecular Bone Score is 1.267 which suggests partially degraded bone microarchitecture compared to the general population. Final decisions regarding diagnostic or therapeutic recommendations should include BMD, TBS, additional clinical risk factors as well the clinical context of the patient. Please see attached TBS results for further details. ADDITIONAL COMMENTS: Postmenopausal Women and Men Over 50: Diagnostic criteria: Osteoporosis: BMD at or below -2.5 T-score; Osteopenia (low bone mass): BMD between -1.0 and -2.5 T-score. If the patient has a history of a fragility fracture, a fracture that occurred with trauma equivalent to a fall from a standing position or less, then the diagnosis is osteoporosis regardless of bone density. The history and data sections of the bone mineral density scan were prepared by Karin Cancino)(Deo)(BD) [employer] who is accredited by the International Society of Clinical Densitometry. The overall patient assessment and scan interpretation were performed by Sandra Craig MD who is certified by the International Society of Clinical Densitometry. [id number] Sandra Craig MD IMG DXA PROCEDURES Final Resu lt from Last 3 Months or Most Recently Relevant to Health Maintenance [place] [address] [facility] MEDICARE MEDICARE [facility] MEDICARE [facility] Advance Directives For more information, please contact: [phone] Documents on File Type Date Recorded Patient Critical Care Physician Expl anation Power of Medical Professionals 04/23/2024 11:06 AM Care Teams Patternmaker Apprentice Metal Relationship Specialty Start Date End Date Eddy Cruz MD [address] [address] PCP - General 08/26/16 Jose Angel Parr MD [address] [place] [address] Research Development Director Obstetrics and Gynecology 09/08/22 Megan Oliver MD [address] [facility] [address] [place] [address] Consulting Physician Rheumatology 10/01/24
--- OUTSIDE RECORDS SUMMARY | 2024-11-14 10:42 | XMS_ITS | Referral Summary ---
Author Organization [facility] al Address [address] [place] [address] Care Team Providers Care Cadd Manager Name Role Phone Eddy Cruz MD Primary Care Provider + [phone] Jose Angel Parr MD Unavailable Megan Oliver MD Unavailable + Encounters Date Type Department Care Team Description 10/09/2024 Documentation [facility] Rheumatology at [facility] [address] [place] [address] Megan [facility] 10/09/2024 Orders Only [facility] Cancer Infusion Center 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) (Primary Dx) 09/18/2024 11:42 AM CDT - 09/18/2024 11:59 PM CDT Hospital Encounter [id number] [place] [phone] Discharge Disposition: Discharge to home or self care 09/18/2024 8:30 AM CDT Office Visit [facility] Rheumatology at [facility] [address] [place] [phone] Megan Oliver MD 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 Overview (09/01/2016): HERPES SIMPLEX NOS Immunizations Immunization Administration Dates Next Due H1N1 [...] Pneumococcal Polysaccharide PPV23 06/14/2018,05/2007 ZOSTER Recombinant 05/13/2019,03/13/2019 Social History Tobacco Use Types Packs/Day Years [...] on file 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 pH may affect urinary stone formation. For example, urine pH below 6.0 may help reduce the tendency for calcium phosphate stones and pH greater than 6.0 may reduce the tendency for uric acid stone formation. Source: [facility] dax [place] Current Interpretive Data was last revised on 2017 Protein, ur ql Negative Negative [facility] Glucose, ur ql Negative Negative [facility] Ketones, ur Negative Negative [facility] Bilirubin, ur Negative Negative [facility] Blood, ur Negative Negative [facility] Urobilinogen, ur <2.0 <2.0 mg/dL [facility] Nitrite, ur Negative Negative [facility] Leukocyte esterase, ur Negative Negative [facility] UA reflex comment Reflex conditions for microscopic UA and culture not met. [facility] Urine, clean voided 10/08/2024 7:47 AM CDT 10/08/2024 8:03 AM CDT Megan Oliver MD LAB MICROBIOLOGY - GENERAL ORDERABLES Final Result Performing Organization Address [facility] Co de Phone Number [facility] [address] Department [place] [address] * eGFR (10/08/2024 7:44 AM CDT) eGFR [...] ORDERABL ES Final Result Performing Organization Address City/[facility]/ZIP Co de Phone Number [facility] [address] Department of Laboratories [place], [place] [id number] * Differential, auto (10/08/2024 7:44 AM CDT) Neutrophil abs 2.72 1.50 - 6.50 K/cumm Imm gran abs 0.01 0.00 - 0.10 K/cumm [facility] Lymphocyte abs 1.40 0.80 - 3.30 K/cumm [facility] Monocyte abs 0.78 0.20 - 0.80 K/cumm [facility] Eosinophil abs 0.22 0.00 - 0.50 K/cumm [facility] Basophil abs 0.04 0.00 - 0.10 K/cumm [facility] Neutrophil pct 52.5 % [facility] Comment: Interpretive Data Percent cell count reference ranges are not reported, since discordance with absolute values may lead to misinterpretation of CBC data. Current Interpretive Data was last revised on 2017. Imm gran pct 0.2 % [facility] Comment: Interpretive Data Percent cell count reference ranges are not reported, since discordance with absolute values may lead to misinterpretation of CBC data. Current Interpretive Data was last revised on 2017. Lymphocyte pct 27.1 % [facility] Comment: Interpretive Data Percent cell count reference ranges are not reported, since discordance with absolute values may lead to misinterpretation of CBC data. Current Interpretive Data was last revised on 2017. Monocyte pct 15.1 % [facility] Comment: Interpretive Data Percent cell count reference ranges are not reported, since discordance with absolute values may lead to misinterpretation of CBC data. Current Interpretive Data was last revised on 2017. Eosinophil pct 4.3 % [facility] Comment: Interpretive Data Percent cell count reference ranges are not reported, since discordance with absolute values may lead to misinterpretation of CBC data. Current Interpretive Data was last revised on 2017. Basophil pct 0.8 % [facility] Comment: Interpretive Data Percent cell count reference ranges are not reported, since discordance with absolute values may lead to misinterpretation of CBC data. Current Interpretive Data was last revised on 2017. Blood 10/08/2024 7:44 AM CDT 10/08/2024 7:44 AM CDT us Megan Oliver MD LAB BLOOD ORDERABL ES Final Result [facility] [address] Department [place] [address] * (ABNORMAL) CBC with auto differential (10/08/2024 7:44 AM CDT) [facility] WBC 5.17 3.80 - 9.90 K/cumm Hgb 12.6 11.9 - 15.5 g/dL [facility] Hct 37.6 35.6 - 45.5 % [facility] Plt 242 150 - 400 K/cumm [facility] MPV 8.6(L) 9.1 - 12.3 fL [facility] RBC 3.97 3.90 - 5.20 M/cumm [facility] MCV 94.7 81.3 - 96.4 fL [facility] MCH 31.7 27.1 - 33.3 pg [facility] MCHC 33.5 32.3 - 35.7 g/dL [facility] RDW CV 13.2 11.1 - 14.9 % [facility] RDW SD 46.0 35.7 - 48.1 fL [facility] NRBC abs 0.00 0.00 - 0.01 K/cumm [facility] ANC Prelim 2.72 1.50 - 6.50 K/cumm [facility] Comment: Interpretive Data The rapid ANC is a preliminary automated count and may vary from the final ANC (Neut Abs) reported in the WBC differential that follows. Current interpretive data was last revised 2024. Blood 10/08/2024 7:44 AM CDT 10/08/2024 7:44 AM CDT us Megan Oliver MD LAB BLOOD ORDERABL ES Final Result [facility] [address] Department [place] [address] * (ABNORMAL) Comprehensive metabolic panel (10/08/2024 7:44 AM CDT) [facility] Sodium 136 135 - 145 mmol/L Potassium, pl 3.9 3.3 - 4.9 mmol/L [facility] Chloride 99 97 - 110 mmol/L [facility] CO2 27 22 - 32 mmol/L [facility] Anion gap 10 2 - 15 mmol/L [facility] BUN 16 6 - 25 mg/dL [facility] Creatinine 0.56(L) 0.60 - 1.10 mg/dL [facility] Glucose 93 70 - 199 mg/dL [facility] Comment: Interpretive Data Fasting glucose >/= 126 [...] 2022. Calcium 9.1 8.5 - 10.3 mg/dL [facility] Bilirubin, total 0.3 0.1 - 1.2 mg/dL [facility] Protein, pl 7.4 6.5 - 8.5 g/dL [facility] Albumin 3.9 3.5 - 5.0 g/dL [facility] Alk phos 61 40 - 130 Units/L [facility] ALT 17 7 - 45 Units/L [facility] AST 28 10 - 45 Units/L [facility] Blood 10/08/2024 7:44 AM CDT 10/08/2024 8:11 AM CDT Megan Oliver MD LAB BLOOD ORDERABL ES Final Result [facility] [address] Department [place] [address] * eGFR (09/18/2024 9:16 AM CDT) eGFR 88 >=60 mL/min/1. 73 m2 Comment: [...] MD LAB BLOOD ORDERABL ES Final Result [facility] [address] Department [place] [address] * (ABNORMAL) Differential, auto (09/18/2024 9:16 AM CDT) Neutrophil abs 1.98 1.50 - 6.50 K/cumm Imm gran abs 0.02 0.00 - 0.10 K/cumm [facility] Lymphocyte abs 1.37 0.80 - 3.30 K/cumm [facility] Monocyte abs 0.90(H) 0.20 - 0.80 K/cumm [facility] Eosinophil abs 0.06 0.00 - 0.50 K/cumm [facility] Basophil abs 0.03 0.00 - 0.10 K/cumm [facility] Neutrophil pct 45.4 % [facility] Comment: Interpretive Data Percent cell count reference ranges are not reported, since discordance with absolute values may lead to misinterpretation of CBC data. Current Interpretive Data was last revised on 2017. Imm gran pct 0.5 % [facility] Comment: Interpretive Data Percent cell count reference ranges are not reported, since discordance with absolute values may lead to misinterpretation of CBC data. Current Interpretive Data was last revised on 2017. Lymphocyte pct 31.4 % [facility] Comment: Interpretive Data Percent cell count reference ranges are not reported, since discordance with absolute values may lead to misinterpretation of CBC data. Current Interpretive Data was last revised on 2017. Monocyte pct 20.6 % [facility] Comment: Interpretive Data Percent cell count reference ranges are not reported, since discordance with absolute values may lead to misinterpretation of CBC data. Current Interpretive Data was last revised on 2017. Eosinophil pct 1.4 % [facility] Comment: Interpretive Data Percent cell count reference ranges are not reported, since discordance with absolute values may lead to misinterpretation of CBC data. Current Interpretive Data was last revised on 2017. Basophil pct 0.7 % [facility] Comment: Interpretive Data Percent cell count reference ranges are not reported, since discordance with absolute values may lead to misinterpretation of CBC data. Current Interpretive Data was last revised on 2017. Blood 09/18/2024 9:16 AM CDT 09/18/2024 12:40 PM CDT us Megan Oliver MD LAB BLOOD ORDERABL ES Final Result [facility] [address] Department [place] [address] * (ABNORMAL) Urinalysis reflex to microscopic and culture Urine, clean voided (09/18/2024 9:16 AM CDT) Color, ur Yellow Yellow Clarity, ur Clear Clear [facility] Specific gravity, ur 1.022 1.003 - 1.030 [facility] pH, urine 6.5 [facility] Comment: Interpretive Data U rine pH is affected by diet, medications, systemic acid-base disturbances, and renal tubular function. pH may affect urinary stone formation. For example, urine pH below 6.0 may help reduce the tendency for calcium phosphate stones and pH greater than 6.0 may reduce the tendency for uric acid stone formation. Source: [facility] dax [place] Current Interpretive Data was last revised on 2017 Protein, ur ql Trace Negative [facility] Glucose, ur ql Negative Negative [facility] Ketones, ur Negative Negative [facility] Bilirubin, ur Negative Negative [facility] Blood, ur 1+(A) Negative [facility] Urobilinogen, ur <2.0 <2.0 mg/dL [facility] Nitrite, ur Negative Negative [facility] Leukocyte esterase, ur Negative Negative [facility] UA reflex comment Reflex to microscopic UA will be performed. [facility] Urine, clean voided 09/18/2024 9:16 AM CDT 09/18/2024 9:16 AM CDT us Megan Oliver MD LAB MICROBIOLOGY - GENERAL ORDERABLES Final Result [facility] [address] Department [place] [address] * (ABNORMAL) CBC with auto differential (09/18/2024 9:16 AM CDT) WBC 4.36 3.80 - 9.90 K/cumm Hgb 12.7 11.9 - 15.5 g/dL [facility] Hct 39.8 35.6 - 45.5 % [facility] Plt 234 150 - 400 K/cumm [facility] MPV 9.7 9.1 - 12.3 fL [facility] RBC 4.00 3.90 - 5.20 M/cumm [facility] MCV 99.5(H) 81.3 - 96.4 fL [facility] MCH 31.8 27.1 - 33.3 pg [facility] MCHC 31.9(L) 32.3 - 35.7 g/dL [facility] RDW CV 13.9 11.1 - 14.9 % [facility] RDW SD 51.0(H) 35.7 - 48.1 fL [facility] NRBC abs 0.00 0.00 - 0.01 K/cumm [facility] Blood 09/18/2024 9:16 AM CDT 09/18/2024 12:40 PM CDT Megan Oliver MD LAB BLOOD ORDERABL ES Final Result Performing Organization Address [facility] Co de Phone Number [facility] [address] Department [place] [address] * (ABNORMAL) Urinalysis, microscopic only (09/18/2024 9:16 AM CDT) WBC, ur 0-5 0 - 5 /HPF RBC, ur 6-10(A) 0 - 2 /HPF [facility] Epithelial cells, squamous, ur 1-5 0 - 5 /HPF [facility] Mucous, ur Present(A) [facility] Culture Reflex Comment Reflex conditions for urine culture (WBC >10) not met. [facility] Urine, clean voided 09/18/2024 9:16 AM CDT 09/18/2024 12:40 PM CDT Megan Oliver MD LAB URINE ORDERABL ES Final Result Performing Organization Address [facility] Co de Phone Number [facility] [address] [place] [address] * Comprehensive metabolic panel (09/18/2024 9:16 AM CDT) Sodium 136 135 - 145 mmol/L Potassium, pl 4.2 3.3 - 4.9 mmol/L [facility] Chloride 99 97 - 110 mmol/L [facility] CO2 27 22 - 32 mmol/L [facility] Anion gap 10 2 - 15 mmol/L [facility] BUN 15 6 - 25 mg/dL [facility] Creatinine 0.60 0.60 - 1.10 mg/dL [facility] Glucose 91 70 - 199 mg/dL [facility] Comment: Interpretive Data Fasting glucose >/= 126 [...] 2022. Calcium 9.1 8.5 - 10.3 mg/dL [facility] Bilirubin, total 0.3 0.1 - 1.2 mg/dL [facility] Protein, pl 7.7 6.5 - 8.5 g/dL [facility] Albumin 4.1 3.5 - 5.0 g/dL [facility] Alk phos 58 40 - 130 Units/L [facility] ALT 17 7 - 45 Units/L [facility] AST 28 10 - 45 Units/L [facility] Blood 09/18/2024 9:16 AM CDT 09/18/2024 12:40 PM CDT Megan Oliver MD LAB BLOOD ORDERABL ES Final Result [facility] [address] Department [place] [address] * Dexa TBS Axial Skeleton Bone Density 1 or more sites (02/21/2024 12:10 PM CDT) Anatomical Region Laterality Modality Wrist, Body N/A Radiographic Sloane ging Narrative 02/21/2024 2:40 PM CDT Patient Name: Dayana Gamez Date of : 1940 Date of scan: 02/21/2024 Bone mineral density was performed on a H[employer] Discovery Densitometer. Based on machine cross-calibration and [...] mineral density scan were prepared by Karin Cancino)(Deo)() CBDT who is accredited by the International Society of Clinical Densitometry. The overall patient assessment and scan interpretation were performed by Sandra Craig MD who is certified by the International Society of Clinical Densitometry. [id number] Sandra Craig MD IMG DXA PROCEDURES Final Resu lt from Last 3 Months or Most Recently Relevant to Health Maintenance Insurance [facility] MEDICARE [facility] Address: [address] [address] [place] [address] LUIS RENDON [id number] [facility] [address] MEDICARE [facility] Advance Directives For more information, please contact: [phone] Documents on File Type Date Recorded Patient Blocker [employer]ated [employer] Forms Expl anation Power of Appraiser Auditor 04/23/2024 11:06 AM Care Teams Cadd Manager Relationship Specialty Start Date End Date Eddy Cruz MD [address] [address] PCP - General 08/26/16 Jose Angel Parr MD [address] [place] [address] Voltmeter Operator Obstetrics and Gynecology 09/08/22 Megan Oliver MD [address] [facility] [address] [place] [address] Consulting Physician Rheumatology 10/01/24
[2024-11-14 11:20] LABS: EDCOVIDSCREEN Negative (Negative)
[2024-11-14 11:21] LABS: EDUAAPPEAR Clear; EDUABILI 1+ (Negative); EDUABLOOD 1+ (Negative); EDUACOLOR1 Yellow; EDUAGLUCOSE Negative (Negative); EDUAKETONE Negative (Negative); EDUALEUKO Negative (Negative); EDUANITRATE Negative (Negative); EDUAPH 5.5; EDUAPROTEIN 2+ (Negative); EDUAUROBILI 0.2
[2024-11-14 11:55] VITALS: PULSE 130; O2SAT 100
--- NOTE | 2024-11-14 11:59 | ECG_ITS ---
Test Date: 2024-11-14 12:06:34 Measurements Intervals [place] Rate: 89 P: 74 CT: 162 QRS: 65 QRSD: 90 T: 47 QT: 342 QTc: 416 Interpretive Statements SINUS RHYTHM POSSIBLE LEFT ATRIAL ENLARGEMENT MINIMAL Q WAVES- ANTEROLAT/INF LEADS BORDERLINE ST-T WAVE ABNORMALITY- DIFFUSE LEADS BASELINE ARTIFACT- I, II, III, AVR, AVL, AVF, V1-V2 BORDERLINE ECG No previous ECG available for comparison Electronically Signed On 11-14-2024 13:17:58 CDT by Sincere Mahoney D.O.
--- NOTE | 2024-11-14 12:16 | PC.NURSE ---
Patient ambulated in the billy and her heart rate went up to 130 and her oxygen saturation was 100% on RA.
== END 2024-11-14 12:26 | disposition short-term general hospital (02) ==
PROVIDERS: Emergency Provider Nurse Practitioner; PCP Internal Medicine
DX: J18.9 Pneumonia, unspecified organism (principal); R00.0 Tachycardia, unspecified; Z20.822 Contact with and (suspected) exposure to COVID-19; I10 Essential (primary) hypertension; E78.5 Hyperlipidemia, unspecified; K21.9 Gastro-esophageal reflux disease without esophagitis
CPT/HCPCS: 71046; 81003; 87081; 87426; 87880; 93005; 99213; G0463